=== PATIENT | female | born 1960 | race Caucasian/White ===

== ENCOUNTER 2019-10-07 08:55 | Outpatient (RCR) | payer OTHER, SELFPAY ==
--- NOTE | 2019-10-07 08:52 | PTOPEVAL ---
Thank you for referring this patient to [facility]. Please review, sign, date and return this plan of care DIXIE. I agree with and certify that the following plan of care is medically necessary. Referring Physician Date Admitting Provider: Attending Provider: PHYSICIAN NOT ON STAFF Referring Provider: *PT Outpatient Evaluation Start: 10/07/19 08:02 Freq: Status: Active Protocol: Document 10/07/19 08:02 TIGIST (Rec: 10/07/19 08:32 TIGIST [id number]) Therapy Assessment Status Assessment Status Assessment Status Evaluation Evaluation Information Problem Diagnosis right ATFL sprain, avulsion fx right ankle Onset 05/14/19 Subjective Information Pt. reports she rolled her Query Text:As Reported By Patient/ ankle in May going down Family steps and missed the last step . She reports that the pain has improved. She reports that she still gets pain with sleep and going up steps. She reports that she still cannot walk a long distance, such as walking through the store to do grocery shopping. She reports her doctor suggested she return to therapy to increase the strength of her ankle. She denies any recent episode of falling or ankle giving out. Diagnostic Tests X-Rays For This Problem Yes MRI For This Problem Yes Prior Level of Function Activity Level (Last 3 Months) Hand Dominance Right Activity of Daily Living Ability Independent Indoor/Home Mobility Independent Community Mobility Independent Stairs Ability Independent Functional Cognition (Planning, Shopping Independent , Taking Medications) Cooking Yes Cleaning Yes Laundry Yes Shopping Yes Driving Yes Comments Additional Prior Level of Function Pt. continues to perform all Comments basic ADL's. Pt. notes more difficulty with walking over uneven terrain such as grass and with walking long distances. Pain Assessment Timing of Pain Assessment Timing of Pain Assessment Pre-Treatment Pain Scale Pain Scale Used
== END 2019-10-30 10:46 | disposition home or self-care (01) ==
LOC: CHSPT 08:55
DX: S82.891D Other fracture of right lower leg, subsequent encounter for closed fracture with routine healing (principal); S93.491D Sprain of other ligament of right ankle, subsequent encounter
CPT/HCPCS: 97110; 97112; 97140; 97161

== ENCOUNTER 2019-10-14 13:26 | Outpatient (CLI) | payer OTHER, SELFPAY ==
--- NOTE | ~2019-10-14 | MM_ITS ---
CORRECTED REPORT order changed to MM screening mammo BI w eusebio [place]15[place] [facility] [place]: MM screening mammo BI w eusebio HISTORY: Screening mammogram TECHNIQUE: Craniocaudal and mediolateral oblique 3-D tomosynthesis images were obtained and synthetic 2-D images were generated. CAD analysis was submitted and interpreted. COMPARISON: No prior mammogram is available for comparison at this institution. BREAST PARENCHYMAL COMPOSITION: The breasts are heterogeneously dense, which may obscure small masses.......... FINDINGS: There is no evidence of suspicious mass, calcification, or architectural distortion to suggest malignancy in either breast. There has been no suspicious interval change. IMPRESSION: 1. No mammographic evidence of malignancy. 2. Recommend routine screening mammography in one year. BI-RADS Category 1: Negative Reviewed, dictated and finalized at location A. OR BENEFITS ANALYST MTDDavid
== END 2019-10-14 13:27 | disposition home or self-care (01) ==
LOC: CHSIMG 13:29
PROVIDERS: PCP Family Medicine; Visit Provider Family Medicine
DX: Z12.31 Encounter for screening mammogram for malignant neoplasm of breast (principal)
CPT/HCPCS: 77063; 77067

== ENCOUNTER 2019-12-19 15:38 | Observation (INO) | payer OTHER, SELFPAY ==
[2019-12-19] VITALS (7 sets, daily range): BP systolic 88–143; BP diastolic 38–91; PULSE 94–105; RESP 16–20; TEMP 36.9; O2SAT 95–98; BMI 35.0
--- NOTE | ~2019-12-19 | XR_ITS ---
EXAMINATION: XR hand LT 2V EXAM DATE: 12/19/2019 18:08 INDICATION: Left hand tingling, large tender lump over third and fourth carpal metacarpal regions. TECHNIQUE: Left hand frontal, lateral projections obtained and reviewed. Comparison is made to prior examination from 04/09/2004. FINDINGS: Again there are 2 screws in the second metacarpal head. There is been interval development of moderate primary osteoarthritis at the first carpometacarpal and metacarpophalangeal joint and the triscaphe joint. There are no bony erosions identified. There are no acute fractures or dislocations identified. There is no subcutaneous gas. The soft tissue is unremarkable. IMPRESSION: Chronic findings as above. Reviewed, dictated and finalized at location A. IMPRESSION: Chronic findings as above.
--- NOTE | ~2019-12-19 | CT_ITS ---
EXAMINATION: CT brain wo con EXAM DATE: 12/19/2019 16:46 INDICATION: Syncope, hit forehead. TECHNIQUE: Spiral CT of the head was performed without contrast. Axial, coronal and sagittal images were reviewed. The dose-length product (DLP) for this examination was 605.33 mGy-cm. The exposure w as tailored according to patient size, and iterative reconstruction (ASIR) was used as additional dos e reduction technique. There is no prior study for comparison. FINDINGS: There is no acute intraparenchymal hemorrhage. No evidence of intraparenchymal brain mass lesion. No evidence of acute infarction. There is no mass effect or midline shift. The ventricles are normal in size. There are no extra-axial collections. There are no acute calvarial fractures. T he orbits are unremarkable. Soft tissue is unremarkable. The visualized sinuses and mastoid air ramandeep ls are well aerated. IMPRESSION: 1. No acute intracranial findings. Reviewed, dictated and finalized at location A.
--- NOTE | 2019-12-19 16:31 | ECG_ITS ---
Measurements Intervals [place] Rate: 95 P: 55 NE: 166 QRS: 53 QRSD: 84 T: 44 QT: 445 QTc: 560 Interpretive Statements SINUS RHYTHM MINIMAL Q WAVES- INFERIOR LEADS PROLONGED QT INTERVAL ABNORMAL ECG Electronically Signed On 12-20-2019 7:07:21 CDT by Duran Callejas D.O.
[2019-12-19] MEDS: SODIUM CHLORIDE 0.9% IV 1,000 ML 999 ML IV CONT (16:50)
[2019-12-19 16:56] LABS: Basophils Absolute Auto 0.07 K/mm3 (0.00-0.10); Eosinophils Absolute Auto 0.11 K/mm3 (0.02-0.50); Eosinophils Percent Auto 1.6 % (1.0-6.0); Hematocrit 36.5 % (35.0-49.0); Hemoglobin 12.5 g/dL (12.0-15.0); Immature Granulocyte Absolute 0.05 K/mm3 (0.00-0.00); Immature Granulocyte Percent A 0.7 % (0.0-0.0); Lymphocytes Absolute Auto 1.48 K/mm3 (1.10-4.50); Lymphocytes Percent Auto 22.1 % (18.0-42.0); Mean Corpuscular HGB Conc 34.2 g/dL (32.0-36.0); Mean Corpuscular Hemoglobin 29.9 pg (27.0-31.0); Mean Corpuscular Volume 87.3 fL (78.0-102.0); Mean Platelet Volume 10.1 fl (9.2-11.8); Monocytes Absolute Auto 0.65 K/mm3 (0.10-0.90); Monocytes Percent Auto 9.7 % (2.0-11.0); Neutrophils Absolute Auto 4.3 K/mm3 (1.7-7.2); Neutrophils Percent Auto 64.9 % (50.0-70.0); Platelet Count Result 199 K/mm3 (150-420); Red Blood Count 4.18 M/mm3 (4.20-5.40); Red Cell Distribution Width 13.2 % (11.6-14.4); White Blood Count 6.7 K/mm3 (4.8-10.8)
[2019-12-19 17:15] LABS: Alanine Aminotransferase 26 U/L (14-59); Albumin Level 4.1 g/dL (3.4-5.0); Alkaline Phosphatase 59 U/L (46-116); Anion Gap 11.5 mmol/L (7-16); Aspartate Amino Transferase 20 U/L (15-37); Bilirubin,Total 0.5 mg/dL (0.00-1.00); Blood Urea Nitrogen 24 mg/dL (7-18); Calcium 8.6 mg/dL (8.5-10.1); Carbon Dioxide 32 mmol/L (21-32); Chloride 88 mmol/L (98-108); Estimated Glomerular Filt Rate 41; Glucose 119 mg/dL (70-99); Osmolality Calculated 271 mOsm/kg (285-295); Potassium 3.5 mmol/L (3.5-5.1); Sodium 128 mmol/L (136-145); Total Protein 7.3 g/dL (6.4-8.2)
[2019-12-19 17:16] LABS: Troponin I 0.04 ng/mL (0.00-0.056)
[2019-12-19 17:21] LABS: Appearance Urine Clear (Clear); Bilirubin Urine Negative (Negative); Color Urine Yellow (Yellow); Glucose Urine UA Negative (Negative); Ketones Urine Negative (Negative); Leukocyte Esterase Ur Trace (Negative); Nitrate Urine Negative (Negative); Protein Urine Negative (Negative); Urobilinogen Urine 0.2 mg/dL (0.2-1.0); pH Urine 6.5 (5.0-8.0)
[2019-12-19 17:27] LABS: Add Urine Microscopic? YES; Bacteria Urine 1+ /hpf; Blood Urine Trace (Negative); RBC Urine 0-2 /hpf (0-2); Squamous Epithelial Cell Urine Few /hpf (Few); WBC Urine 0-3 /hpf (0-3)
--- NOTE | 2019-12-19 18:09 | ED.SYNCOPE ---
HPI - Syncope General Chief Complaint: Syncope Stated Complaint: cough fainting Source: patient Mode of arrival: ambulatory Limitations: no limitations History of Present Illness HPI narrative: this is a 59-year-old female that presents with some syncopal episode was not witnessed, no tongue biting no bladder or bowel dysfunction has a prior episode and had a workup with some are her primary care [facility] [place] which included a event monitor and echocardiogram which were both unremarkable. This episode occurred in the context of prolonged coughing and then a episode where she feels like she passed out for a few seconds. Currently there is no headaches no blurry vision no nausea vomiting no chest pain no shortness of breath no fever chills no diarrhea constipation. The patient she is currently on antidepressant medications, duloxetine at buspirone and trazodone for sleep. Patient has a history of hypertension hyperlipidemia and generalized anxiety disorder. complaint: loss of consciousness Onset (ago): minute(s) -: second(s) Prodromal symptoms: none Witnessed: No Context: at rest and other (With coughing) Injuries sustained associated with event: LLE Current symptoms: none History: previous syncopal episode Treatments prior to arrival: none Related Data Home Medications Medication Instructions Recorded Confirmed metoprolol succinate 50 mg 50 mg PO DAILY tablet 09/25/19 12/19/19 tablet,extended release 24 hr Allergies Allergy/AdvReac Type Severity Reaction Status Date / Time No Known Allergies Allergy Verified 11/22/19 08:10 Review of Systems Review of Systems: All systems reviewed & are unremarkable except as noted in HPI and below PMFSH Past Medical History Medical History MARCO ANTONIO (generalized anxiety disorder) Hyperlipidemia Hypertension Surgical History Surgical History H/O repair of rotator cuff H/O tubal ligation History of appendectomy Family History Family History Father Family history of type 2 diabetes mellitus Social History Social History Smoking status: Never smoker Tobacco type: cigarettes Exam Const: General: no acute distress and alert Orientation/consciousness: patient oriented x3 HENMT: Head: normal to inspection Eyes: Pupils: Equal, round and reactive pupils present Neck: Neck: normal visual inspection Chest: Chest palpation & inspection: normal inspection of the chest Resp: Effort & Inspection: normal respiratory effort Auscultation: clear to auscultation bilaterally Cardio: Rate: regular rate Rhythm: regular rhythm GI: Auscultation: normal bowel sounds : General: Yes no CVA tenderness Urinary Catheter: Urinary Catheter: patent and draining Back/Spine/Pelvis: Back: no CVA tenderness Skin: General skin exam: normal color Rashes: no rashes Neuro: General: patient oriented x3, moves all extremities, no meningeal signs and no focal motor deficits Extrem: General: no pedal edema Psych: Appearance: grossly normal Mental Status: mental status grossly normal Thought content: Yes Normal thought content present Course Vital Signs Vital signs: Vital Signs Temperature 36.9 C 12/19/19 16:35 Pulse Rate 98 12/19/19 16:35 Respiratory Rate 20 12/19/19 16:35 Blood Pressure 143/91 H 12/19/19 16:35 Pulse Oximetry 98 12/19/19 16:35 Temperature 36.9 C 12/19/19 16:35 Pulse Rate 95 12/19/19 17:47 Respiratory Rate 20 12/19/19 16:35 Blood Pressure 88/38 L 12/19/19 17:47 Pulse Oximetry 98 12/19/19 16:35 MDM - Syncope Lab Data Result diagrams: 12/19/19 16:51 12/19/19 16:51 Labs: Lab Results 12/19/19 12/19/19 12/19/19 Range/Units 16:51 16:51 16:51 WBC 6.7 (4.
--- NOTE | 2019-12-19 19:56 | ADMGEN ---
This patient, Idalmis Gray, was admitted to 2nd Floor Room 204-1. Patient/family oriented to hospital policies and general routines including ID bracelet, bed and alarms, visiting hours, pain management, procedures, bathroom and other care routines, personal items, smoking policy, room service/diet, and visiting hours. Valuables list has been completed. Information on how to activate the Rapid Response Team has been discussed. Patient/Family are encouraged to report perceived risks to care and to ask questions if they do not understand what they are told or what they should do.
[2019-12-19] MEDS: ACETAMINOPHEN 325 MG TABLET 650 MG PO (22:47)
[2019-12-19] MEDS: TEMAZEPAM 15 MG CAPSULE PO (22:47)
[2019-12-20] VITALS: PULSE 101
[2019-12-20] MEDS: SODIUM CHLORIDE 0.9% IV 1,000 ML 100 ML IV CONT ×2 (01:31→01:33)
--- NOTE | 2019-12-20 02:07 | PC.NURSE ---
IV & telemetry continue. Sleeping, resp even. No signs of discomfort noted.
--- NOTE | 2019-12-20 03:28 | PC.NURSE ---
Sleeping, resp even. No signs of discomfort noted. IV & telemetry continue. Needed objects in reach.
[2019-12-20 04:00] VITALS: BP 104/54; PULSE 93; PULSE 95; RESP 20; TEMP 36.8; O2SAT 95
[2019-12-20] MEDS: ACETAMINOPHEN 325 MG TABLET 650 MG PO ×2 (04:17→09:03)
[2019-12-20 07:33] LABS: Basophils Absolute Auto 0.06 K/mm3 (0.00-0.10); Eosinophils Absolute Auto 0.15 K/mm3 (0.02-0.50); Eosinophils Percent Auto 2.5 % (1.0-6.0); Hematocrit 33.2 % (35.0-49.0); Hemoglobin 11.1 g/dL (12.0-15.0); Immature Granulocyte Absolute 0.05 K/mm3 (0.00-0.00); Immature Granulocyte Percent A 0.8 % (0.0-0.0); Lymphocytes Absolute Auto 2.51 K/mm3 (1.10-4.50); Mean Corpuscular HGB Conc 33.4 g/dL (32.0-36.0); Mean Corpuscular Hemoglobin 29.9 pg (27.0-31.0); Mean Corpuscular Volume 89.5 fL (78.0-102.0); Mean Platelet Volume 10.8 fl (9.2-11.8); Monocytes Absolute Auto 0.44 K/mm3 (0.10-0.90); Monocytes Percent Auto 7.2 % (2.0-11.0); Neutrophils Absolute Auto 2.9 K/mm3 (1.7-7.2); Neutrophils Percent Auto 47.5 % (50.0-70.0); Platelet Count Result 189 K/mm3 (150-420); Red Blood Count 3.71 M/mm3 (4.20-5.40); Red Cell Distribution Width 13.3 % (11.6-14.4); White Blood Count 6.1 K/mm3 (4.8-10.8)
[2019-12-20 07:42] LABS: Alanine Aminotransferase 23 U/L (14-59); Albumin Level 3.5 g/dL (3.4-5.0); Alkaline Phosphatase 51 U/L (46-116); Anion Gap 12.4 mmol/L (7-16); Aspartate Amino Transferase 19 U/L (15-37); Bilirubin,Total 0.2 mg/dL (0.00-1.00); Blood Urea Nitrogen 17 mg/dL (7-18); Calcium 8.5 mg/dL (8.5-10.1); Carbon Dioxide 30 mmol/L (21-32); Chloride 95 mmol/L (98-108); Estimated CRCL calculation 46 ml/min; Estimated Glomerular Filt Rate 46; Glucose 113 mg/dL (70-99); Magnesium 2.1 mg/dL (1.8-2.4); Osmolality Calculated 280 mOsm/kg (285-295); Potassium 3.4 mmol/L (3.5-5.1); Sodium 134 mmol/L (136-145); Total Protein 6.4 g/dL (6.4-8.2)
[2019-12-20 08:00] VITALS: PULSE 95
--- NOTE | 2019-12-20 08:37 | ECG_ITS ---
Measurements Intervals [place] Rate: 88 P: 61 NM: 187 QRS: 69 QRSD: 84 T: 61 QT: 467 QTc: 566 Interpretive Statements SINUS RHYTHM MINIMAL Q WAVES- INFERIOR LEADS PROLONGED QT INTERVAL ABNORMAL ECG Electronically Signed On 12-20-2019 8:46:23 CDT by Duran Callejas D.O.
[2019-12-20 09:02] VITALS: PULSE 94
[2019-12-20] MEDS: DULOXETINE HCL 30 MG CAPSULE.DR PO (09:02)
[2019-12-20] MEDS: lisinopriL 20 MG TABLET PO (09:02)
[2019-12-20] MEDS: METOPROLOL SUCCINATE EXT REL 50 MG TABCR PO (09:02)
[2019-12-20 09:03] VITALS: TEMP 36.4
--- NOTE | 2019-12-20 11:00 | PC.NURSE ---
PT UP AD BEREKET IN ROOM WITHOUT COMPLAINT.
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
[2019-12-20] MEDS: POTASSIUM CHLORIDE 20 MEQ PACKET (FOR LIQUID) 40 MEQ PO (14:16)
[2019-12-20] MEDS: NITROFURANTOIN MONOHYD MACROCR 100 MG CAP PO (14:17)
== END 2019-12-20 14:50 | disposition home or self-care (01) ==
LOC: CHSED 18:34 → CHS2ND 18:47
PROVIDERS: Admitting Provider Emergency Medicine; Emergency Provider Emergency Medicine; PCP Family Medicine; Visit Provider Emergency Medicine
DX: R55 Syncope and collapse (principal); N39.0 Urinary tract infection, site not specified; E87.1 Hypo-osmolality and hyponatremia; R94.31 Abnormal electrocardiogram [ECG] [EKG]; I10 Essential (primary) hypertension; E78.5 Hyperlipidemia, unspecified; F41.1 Generalized anxiety disorder
CPT/HCPCS: 36415; 70450; 73120; 80053; 81001; 83735; 84484; 85025; 87086; 87088; 93005; 96360; 96361; 99283; 99285; A9270; G0378; G0379; J7030

== ENCOUNTER 2019-12-26 09:57 | Outpatient (CLI) | payer OTHER, SELFPAY ==
[2019-12-26 10:10] LABS: Basophils Absolute Auto 0.08 K/mm3 (0.00-0.10); Basophils Percent Auto 1.2 % (0.0-1.0); Eosinophils Absolute Auto 0.11 K/mm3 (0.02-0.50); Eosinophils Percent Auto 1.6 % (1.0-6.0); Hematocrit 42.6 % (35.0-49.0); Hemoglobin 14.1 g/dL (12.0-15.0); Immature Granulocyte Absolute 0.04 K/mm3 (0.00-0.00); Immature Granulocyte Percent A 0.6 % (0.0-0.0); Lymphocytes Absolute Auto 2.31 K/mm3 (1.10-4.50); Lymphocytes Percent Auto 33.5 % (18.0-42.0); Mean Corpuscular HGB Conc 33.1 g/dL (32.0-36.0); Mean Corpuscular Hemoglobin 29.8 pg (27.0-31.0); Mean Corpuscular Volume 90.1 fL (78.0-102.0); Monocytes Absolute Auto 0.64 K/mm3 (0.10-0.90); Monocytes Percent Auto 9.3 % (2.0-11.0); Neutrophils Absolute Auto 3.7 K/mm3 (1.7-7.2); Neutrophils Percent Auto 53.8 % (50.0-70.0); Platelet Count Result 251 K/mm3 (150-420); Red Blood Count 4.73 M/mm3 (4.20-5.40); Red Cell Distribution Width 13.5 % (11.6-14.4); White Blood Count 6.9 K/mm3 (4.8-10.8)
[2019-12-26 11:09] LABS: Anion Gap 19.3 mmol/L (7-16); Blood Urea Nitrogen 21 mg/dL (7-18); Calcium 9.9 mg/dL (8.5-10.1); Carbon Dioxide 24 mmol/L (21-32); Chloride 99 mmol/L (98-108); Estimated Glomerular Filt Rate 48; Glucose 124 mg/dL (70-99); Osmolality Calculated 290 mOsm/kg (285-295); Potassium 4.3 mmol/L (3.5-5.1); Sodium 138 mmol/L (136-145)
[2019-12-26 11:11] LABS: Ferritin 104 ng/mL (8-252); Iron 83 ug/dL (50-170); Percent Iron Saturation 18 % (12-57)
== END 2019-12-26 09:58 | disposition home or self-care (01) ==
PROVIDERS: PCP Family Medicine; Visit Provider Nurse Practitioner
DX: E87.1 Hypo-osmolality and hyponatremia (principal); R55 Syncope and collapse; R11.0 Nausea; R94.31 Abnormal electrocardiogram [ECG] [EKG]
CPT/HCPCS: 36415; 80048; 82728; 83540; 83550; 85025

== ENCOUNTER 2020-02-15 18:23 | Emergency (ER) | payer OTHER, SELFPAY ==
--- NOTE | ~2020-02-15 | XR_ITS ---
XR chest 2V DATE: 02/15/2020 19:57 INDICATION: Syncopal episode TECHNIQUE: PA and lateral views COMPARISON: None FINDINGS: Normal heart size. No hilar or mediastinal enlargement. No pulmonary infiltrate or consolid ation, pleural effusion or pulmonary vascular congestion or pneumothorax. Diffuse osteopenia. IMPRESSION: No active cardiopulmonary disease Reviewed, dictated and finalized at location A.
--- NOTE | ~2020-02-15 | CT_ITS ---
EXAMINATION: CT cervical spine wo con DATE: 02/15/2020 19:04 INDICATION: Syncopal episodes TECHNIQUE: Computed tomography (CT) of the cervical spine was performed without intravenous contrast. Automated exposure control and iterative reconstruction technique were employed. Exam dose: 550.33 mGy-cm total exam DLP. COMPARISON: None FINDINGS: There is straightening of the cervical spine which may be due to positioning and/or muscle spasm. C1 and C2 are normally aligned and the odontoid process is intact. There is mild anterolisthesis at C3-4. There is mild to moderate degenerative disc disease and mild anterolisthesis at C4-5. There is moderately severe degenerative disc disease at C5-6. There are degenerative changes throughout the apophyseal joints of the cervical spine. There is uncovertebral joint spurring particular at C5-6. IMPRESSION: Straightening No fracture or dislocation or locked facet Degenerative changes Reviewed, dictated and finalized at Location A. Reviewed, dictated and finalized at location A.
--- NOTE | ~2020-02-15 | CT_ITS ---
EXAMINATION: CT brain wo con DATE: 02/15/2020 19:03 INDICATION: Recurrent syncopal episodes TECHNIQUE: Computed tomography (CT) of the head was performed without intravenous contrast. The mA wa s adjusted according to patient size. Iterative reconstruction technique was employed. Exam dose: 68 1.00 mGy-cm total exam DLP. COMPARISON: 12/19/2019 CT brain FINDINGS: No intracranial mass lesion or hemorrhage or evidence of cerebrovascular accident. No midli ne shift or mass effect. Normal ventricular size. No subdural or epidural hematoma. No fracture or bone destruction of the cranial vault. The mastoid air cells and included paranasal si nuses are normally developed and aerated. IMPRESSION: No significant abnormality Reviewed, dictated and finalized at Location A. Reviewed, dictated and finalized at location A. IMPRESSION: No significant abnormality
[2020-02-15 18:32] LABS: Glucose Point of Care 100 (65-105)
[2020-02-15 18:35] VITALS: BP 112/68; PULSE 76; RESP 18; TEMP 36.7; O2SAT 97
--- NOTE | 2020-02-15 18:37 | ECG_ITS ---
Measurements Intervals [place] Rate: 71 P: 24 VA: 184 QRS: 56 QRSD: 90 T: 67 QT: 440 QTc: 480 Interpretive Statements SINUS RHYTHM MINIMAL Q WAVES- INFERIOR LEADS BORDERLINE ECG Electronically Signed On 02-17-2020 7:15:42 CDT by Duran Callejas D.O.
[2020-02-15 19:39] LABS: Basophils Absolute Auto 0.06 K/mm3 (0.00-0.10); Eosinophils Absolute Auto 0.09 K/mm3 (0.02-0.50); Eosinophils Percent Auto 1.4 % (1.0-6.0); Hematocrit 31.7 % (35.0-49.0); Hemoglobin 10.8 g/dL (12.0-15.0); Immature Granulocyte Absolute 0.02 K/mm3 (0.00-0.00); Immature Granulocyte Percent A 0.3 % (0.0-0.0); Lymphocytes Absolute Auto 2.15 K/mm3 (1.10-4.50); Lymphocytes Percent Auto 34.5 % (18.0-42.0); Mean Corpuscular HGB Conc 34.1 g/dL (32.0-36.0); Mean Corpuscular Hemoglobin 30.6 pg (27.0-31.0); Mean Corpuscular Volume 89.8 fL (78.0-102.0); Mean Platelet Volume 10.5 fl (9.2-11.8); Monocytes Absolute Auto 0.52 K/mm3 (0.10-0.90); Monocytes Percent Auto 8.3 % (2.0-11.0); Neutrophils Absolute Auto 3.4 K/mm3 (1.7-7.2); Neutrophils Percent Auto 54.5 % (50.0-70.0); Platelet Count Result 188 K/mm3 (150-420); Red Blood Count 3.53 M/mm3 (4.20-5.40); Red Cell Distribution Width 13.9 % (11.6-14.4); White Blood Count 6.2 K/mm3 (4.8-10.8)
[2020-02-15 19:44] LABS: Add Urine Microscopic? YES; Appearance Urine Clear (Clear); Bilirubin Urine Negative (Negative); Blood Urine 1+ (Negative); Color Urine Yellow (Yellow); Glucose Urine UA Negative (Negative); Ketones Urine Negative (Negative); Leukocyte Esterase Ur Negative LEU/UL (Negative); Nitrate Urine Negative (Negative); Protein Urine Negative (Negative); Specific Grav Ur <= 1.005 (1.010-1.020); Urobilinogen Urine 0.2 mg/dL (0.2-1.0); pH Urine 6.5 (5.0-8.0)
[2020-02-15 19:46] VITALS: BP 104/61; BP 92/68; PULSE 67; PULSE 69
[2020-02-15 19:47] VITALS: BP 120/70; PULSE 70
[2020-02-15 19:50] LABS: Amphetamine Screen Urine Negative (Negative); Bacteria Urine Trace /hpf; Barbiturate Screen Urine Negative (Negative); Benzodiazepines Screen Urine Negative (Negative); Cannabinoid Screen Urine Positive (Negative); Cocaine Screen Urine Negative (Negative); Methadone Screen Urine Negative (Negative); Mucus Urine None seen /lpf; Opiate Screen Urine Negative (Negative); Phencyclidine Screen Urine Negative (Negative); RBC Urine 0-2 /hpf (0-2); Squamous Epithelial Cell Urine Few /hpf (Few); WBC Urine None seen /hpf (0-3)
[2020-02-15 19:52] LABS: Ethanol 147 mg/dL (0-6)
[2020-02-15 19:58] LABS: Alanine Aminotransferase 16 U/L (14-59); Albumin Level 3.6 g/dL (3.4-5.0); Alkaline Phosphatase 50 U/L (46-116); Aspartate Amino Transferase 13 U/L (15-37); Bilirubin,Total 0.1 mg/dL (0.00-1.00); Blood Urea Nitrogen 17 mg/dL (7-18); Calcium 8.5 mg/dL (8.5-10.1); Carbon Dioxide 31 mmol/L (21-32); Chloride 95 mmol/L (98-108); Estimated CRCL calculation 53 ml/min; Estimated Glomerular Filt Rate 58; Glucose 99 mg/dL (70-99); Magnesium 2.1 mg/dL (1.8-2.4); Osmolality Calculated 281 mOsm/kg (285-295); Sodium 135 mmol/L (136-145); Total Protein 6.7 g/dL (6.4-8.2)
[2020-02-15 20:00] LABS: BNP 19 pg/mL (0-100); D Dimer 0.26 mg/L (0.19-0.50); Partial Thromboplastin Time 28.5 SEC (22.3-31.6); Prothrombin Time 10.1 Seconds (9.64-11.0); Troponin I < 0.02 ng/mL (0.00-0.056)
[2020-02-15] MEDS: NEOMYCIN/POLYMYXIN/BACITRACIN OINTMENT PACKET 2 PACKET (20:15)
[2020-02-15] MEDS: POTASSIUM CHLORIDE 20 MEQ TABLET 40 MEQ PO (20:45)
[2020-02-15] MEDS: KCL 20 MEQ/SW 100 ML 100 ML 50 MEQ IVPB (20:45)
[2020-02-15 20:49] VITALS: BP 102/58; PULSE 77; RESP 18; O2SAT 98
[2020-02-15] MEDS: hydrOXYzine HCL 25 MG TABLET 50 MG PO (21:09)
[2020-02-15 22:19] VITALS: BP 101/54; PULSE 76; RESP 20; O2SAT 95
--- NOTE | 2020-02-15 22:45 | PC.NURSE ---
Pt denies any complaints at this time. Pt states she does have a ride home. Awaiting repeat bmp to check potassium. Pt aware.
--- NOTE | 2020-02-15 22:58 | PC.NURSE ---
report to Aria EUCEDA
[2020-02-15 23:08] LABS: Anion Gap 12.7 mmol/L (7-16); Blood Urea Nitrogen 16 mg/dL (7-18); Calcium 8.8 mg/dL (8.5-10.1); Carbon Dioxide 31 mmol/L (21-32); Chloride 97 mmol/L (98-108); Estimated CRCL calculation 53 ml/min; Estimated Glomerular Filt Rate 59; Glucose 101 mg/dL (70-99); Osmolality Calculated 285 mOsm/kg (285-295); Potassium 3.7 mmol/L (3.5-5.1); Sodium 137 mmol/L (136-145)
[2020-02-15 23:27] VITALS: BP 110/75; PULSE 100; RESP 18; TEMP 36.6; O2SAT 98
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
== END 2020-02-15 23:47 | disposition home or self-care (01) ==
PROVIDERS: Emergency Provider Family Medicine; PCP Family Medicine
DX: F10.129 Alcohol abuse with intoxication, unspecified (principal); R55 Syncope and collapse; F12.921 Cannabis use, unspecified with intoxication delirium; V49.9XXA Car occupant (driver) (passenger) injured in unspecified traffic accident, initial encounter
CPT/HCPCS: 36415; 70450; 71046; 72125; 80048; 80053; 80307; 81001; 82948; 83735; 83880; 84484; 85025; 85380; 85610; 85730; 93005; 96365; 96366; 99283; 99284; A9270; J3480

== ENCOUNTER 2020-09-01 13:59 | Outpatient (CLI) | payer OTHER, SELFPAY ==
[2020-09-02 17:28] LABS: SARS-CoV-2 RNA PCR Negative
== END 2020-09-01 14:00 | disposition home or self-care (01) ==
LOC: CHSLAB 14:03
PROVIDERS: PCP Family Medicine; Visit Provider Family Medicine
DX: Z20.822 Contact with and (suspected) exposure to COVID-19 (principal)
CPT/HCPCS: C9803; U0003; U0005

== ENCOUNTER 2020-11-11 12:47 | Outpatient (CLI) | payer OTHER, SELFPAY ==
[2020-11-11 13:47] LABS: Anion Gap 9 mmol/L (8-16); Blood Urea Nitrogen 7 mg/dL (7-18); Calcium 9.4 mg/dL (8.5-10.1); Carbon Dioxide 29 mmol/L (21-32); Chloride 100 mmol/L (98-108); Estimated Glomerular Filt Rate > 60; Glucose 121 mg/dL (70-99); Magnesium 2.1 mg/dL (1.8-2.4); Osmolality Calculated 285 mOsm/kg (285-295); Potassium 4.1 mmol/L (3.5-5.1); Sodium 138 mmol/L (136-145)
== END 2020-11-11 12:48 | disposition home or self-care (01) ==
LOC: CHSLAB 12:49
PROVIDERS: PCP Family Medicine; Visit Provider Internal Medicine Cardiovascular Disease
DX: R42 Dizziness and giddiness (principal); I10 Essential (primary) hypertension; R55 Syncope and collapse
CPT/HCPCS: 36415; 80048; 83735

== ENCOUNTER 2021-03-15 16:59 | Outpatient (CLI) | payer OTHER, SELFPAY ==
[2021-03-15 17:28] LABS: Hemoglobin A1C 5.9 % (<5.7)
[2021-03-15 18:28] LABS: Free T4 Free Thyroxine Reflex 1.04 ng/dL (0.76-1.46)
== END 2021-03-15 17:00 | disposition home or self-care (01) ==
LOC: CHSLAB 17:00
PROVIDERS: PCP Family Medicine; Visit Provider Internal Medicine Cardiovascular Disease
DX: E78.1 Pure hyperglyceridemia (principal)
CPT/HCPCS: 36415; 83036; 84439; 84443

== ENCOUNTER 2021-06-14 12:13 | Outpatient (CLI) | payer MEDICARE, MEDICAID, SELFPAY ==
--- NOTE | ~2021-06-14 | MM_ITS ---
EXAMINATION: MM screening [place] BI w eusebio HISTORY: Screening TECHNIQUE: Craniocaudal and mediolateral oblique 3-D tomosynthesis images were obtained and synthetic 2-D images were generated. CAD analysis was submitted and interpreted. COMPARISON: Comparison to multiple prior studies sequentially, with oldest reviewed study dated 06/15. BREAST PARENCHYMAL COMPOSITION: The breasts are heterogenously dense, which may obscure small masses. FINDINGS: There is no evidence of suspicious mass, calcification, or architectural distortion to sugg est malignancy in either breast. There has been no suspicious interval change. IMPRESSION: 1. No mammographic evidence of malignancy. 2. Recommend routine screening mammography in one year. BI-RADS Category 1: Negative Reviewed, dictated and finalized at location A.
== END 2021-06-14 12:14 | disposition home or self-care (01) ==
PROVIDERS: PCP Family Medicine; Visit Provider Advanced Practice Midwife
DX: Z12.31 Encounter for screening mammogram for malignant neoplasm of breast (principal)
CPT/HCPCS: 77063; 77067

== ENCOUNTER 2021-06-23 15:26 | Outpatient (CLI) | payer MEDICARE, MEDICAID, SELFPAY ==
[2021-06-23 16:20] LABS: Cholesterol 178 mg/dL (0-200); HDL Direct 68 mg/dL (40-60); LDL Cholesterol Calculated 36 mg/dL (<130); Triglycerides 369 mg/dL (0-150)
[2021-06-23 16:27] LABS: Thyroid Stimulating Hormone Reflex 1.91 u/IU/mL (0.36-3.74)
== END 2021-06-23 15:27 | disposition home or self-care (01) ==
PROVIDERS: PCP Family Medicine; Visit Provider Family Medicine
DX: R79.89 Other specified abnormal findings of blood chemistry (principal); E78.5 Hyperlipidemia, unspecified; I10 Essential (primary) hypertension
CPT/HCPCS: 36415; 80061; 84443

== ENCOUNTER 2021-08-17 09:34 | Outpatient (CLI) | payer MEDICARE, MEDICAID, SELFPAY ==
[2021-08-17 11:28] LABS: Alanine Aminotransferase 39 U/L (14-59); Albumin Level 3.9 g/dL (3.4-5.0); Alkaline Phosphatase 76 U/L (46-116); Anion Gap 9 mmol/L (8-16); Aspartate Amino Transferase 36 U/L (15-37); Bilirubin,Total 0.4 mg/dL (0.00-1.00); Blood Urea Nitrogen 9 mg/dL (7-18); Calcium 9.5 mg/dL (8.5-10.1); Carbon Dioxide 34 mmol/L (21-32); Chloride 96 mmol/L (98-108); Estimated Glomerular Filt Rate > 60; Glucose 127 mg/dL (70-99); Magnesium 2.1 mg/dL (1.8-2.4); Osmolality Calculated 288 mOsm/kg (285-295); Potassium 3.3 mmol/L (3.5-5.1); Sodium 139 mmol/L (136-145); Total Protein 7.1 g/dL (6.4-8.2)
[2021-08-17 11:31] LABS: Thyroid Stimulating Hormone Reflex 2.88 u/IU/mL (0.36-3.74)
== END 2021-08-17 09:35 | disposition home or self-care (01) ==
LOC: CHSLAB 09:38
PROVIDERS: PCP Family Medicine; Visit Provider Family Medicine
DX: R94.31 Abnormal electrocardiogram [ECG] [EKG] (principal); I10 Essential (primary) hypertension; E11.9 Type 2 diabetes mellitus without complications; R79.89 Other specified abnormal findings of blood chemistry
CPT/HCPCS: 36415; 80053; 83735; 84443

== ENCOUNTER 2022-01-06 11:47 | Outpatient (CLI) | payer MEDICARE, SELFPAY ==
[2022-01-06 12:31] LABS: Anion Gap 4 mmol/L (8-16); Blood Urea Nitrogen 8 mg/dL (7-18); Calcium 8.8 mg/dL (8.5-10.1); Carbon Dioxide 37 mmol/L (21-32); Chloride 86 mmol/L (98-108); Estimated Glomerular Filt Rate > 60; Glucose 114 mg/dL (70-99); Osmolality Calculated 263 mOsm/kg (285-295); Potassium 2.7 mmol/L (3.5-5.1); Sodium 127 mmol/L (136-145)
== END 2022-01-06 11:48 | disposition home or self-care (01) ==
LOC: CHSLAB 11:58
PROVIDERS: PCP Family Medicine; Visit Provider Nurse Practitioner
DX: R94.31 Abnormal electrocardiogram [ECG] [EKG] (principal)
CPT/HCPCS: 36415; 80048

== ENCOUNTER 2022-01-18 15:25 | Outpatient (CLI) | payer MEDICARE, OTHER, SELFPAY ==
[2022-01-18 16:15] LABS: Anion Gap 8 mmol/L (8-16); Blood Urea Nitrogen 9 mg/dL (7-18); Calcium 9.4 mg/dL (8.5-10.1); Carbon Dioxide 33 mmol/L (21-32); Chloride 95 mmol/L (98-108); Estimated Glomerular Filt Rate > 60; Glucose 125 mg/dL (70-99); Osmolality Calculated 281 mOsm/kg (285-295); Potassium 2.9 mmol/L (3.5-5.1); Sodium 136 mmol/L (136-145)
== END 2022-01-18 15:26 | disposition home or self-care (01) ==
LOC: CHSLAB 15:32
PROVIDERS: PCP Internal Medicine Cardiovascular Disease; Visit Provider Nurse Practitioner
DX: I10 Essential (primary) hypertension (principal)
CPT/HCPCS: 36415; 80048

== ENCOUNTER 2022-06-03 14:58 | Outpatient (CLI) | payer OTHER, SELFPAY ==
[2022-06-03 15:53] LABS: Alanine Aminotransferase 21 U/L (14-59); Alkaline Phosphatase 67 U/L (46-116); Anion Gap 8 mmol/L (8-16); Aspartate Amino Transferase 16 U/L (15-37); Bilirubin,Total 0.3 mg/dL (0.00-1.00); Blood Urea Nitrogen 15 mg/dL (7-18); Calcium 9.1 mg/dL (8.5-10.1); Carbon Dioxide 29 mmol/L (21-32); Chloride 101 mmol/L (98-108); Estimated Glomerular Filt Rate > 60; Glucose 135 mg/dL (70-99); Magnesium 1.8 mg/dL (1.8-2.4); Osmolality Calculated 288 mOsm/kg (285-295); Potassium 3.8 mmol/L (3.5-5.1); Sodium 138 mmol/L (136-145); Total Protein 6.9 g/dL (6.4-8.2)
== END 2022-06-03 14:59 | disposition home or self-care (01) ==
LOC: CHSLAB 15:02
PROVIDERS: PCP Family Medicine; Visit Provider Internal Medicine Cardiovascular Disease
DX: R94.31 Abnormal electrocardiogram [ECG] [EKG] (principal)
CPT/HCPCS: 36415; 80053; 83735

== ENCOUNTER 2022-06-24 13:17 | Outpatient (CLI) | payer OTHER, SELFPAY ==
--- NOTE | ~2022-06-24 | MM_ITS ---
EXAMINATION: MM screening ozzie BI w eusebio HISTORY: Screening mammogram TECHNIQUE: Craniocaudal and mediolateral oblique 3-D tomosynthesis images were obtained and synthetic 2-D images were generated. CAD analysis was submitted and interpreted. COMPARISON: 06/14/2021, 10/14/2019 bilateral screening mammogram examinations BREAST PARENCHYMAL COMPOSITION: The breasts are heterogeneously dense, which may obscure small masses . FINDINGS: There is no evidence of suspicious mass, calcification, or architectural distortion to sugg est malignancy in either breast. There has been no suspicious interval change. IMPRESSION: 1. No mammographic evidence of malignancy. 2. Recommend routine screening mammography in one year. BI-RADS Category 1: Negative Reviewed, dictated and finalized at location A. ND EQUIPMENT MECHANIC
== END 2022-06-24 13:18 | disposition home or self-care (01) ==
LOC: CHSIMG 13:18
PROVIDERS: PCP Family Medicine; Visit Provider Family Medicine
DX: Z12.31 Encounter for screening mammogram for malignant neoplasm of breast (principal)
CPT/HCPCS: 77063; 77067

== ENCOUNTER 2022-11-29 11:41 | Outpatient (CLI) | payer MEDICARE, SELFPAY ==
[2022-11-29 12:00] LABS: Hematocrit 37.9 % (35.0-49.0); Hemoglobin 12.8 g/dL (12.0-15.0); Mean Corpuscular HGB Conc 33.8 g/dL (32.0-36.0); Mean Corpuscular Hemoglobin 30.9 pg (27.0-31.0); Mean Corpuscular Volume 91.5 fL (78.0-102.0); Mean Platelet Volume 10.6 fl (9.2-11.8); Platelet Count Result 191 K/mm3 (150-420); Red Blood Count 4.14 M/mm3 (4.20-5.40); Red Cell Distribution Width 12.7 % (11.6-14.4); White Blood Count 5.2 K/mm3 (4.8-10.8)
[2022-11-29 12:41] LABS: Alanine Aminotransferase 23 U/L (14-59); Albumin Level 3.5 g/dL (3.4-5.0); Alkaline Phosphatase 71 U/L (46-116); Anion Gap 7 mmol/L (8-16); Aspartate Amino Transferase 15 U/L (15-37); Bilirubin,Total 0.3 mg/dL (0.00-1.00); Blood Urea Nitrogen 8 mg/dL (7-18); Calcium 8.8 mg/dL (8.5-10.1); Carbon Dioxide 33 mmol/L (21-32); Chloride 103 mmol/L (98-108); Cholesterol 176 mg/dL (0-200); Estimated Glomerular Filt Rate > 60; Glucose 132 mg/dL (70-99); HDL Direct 52 mg/dL (40-60); LDL Cholesterol Calculated 59 mg/dL (<130); Lipase 124 U/L (16-77); Osmolality Calculated 296 mOsm/kg (285-295); Potassium 3.6 mmol/L (3.5-5.1); Sodium 143 mmol/L (136-145); Total Protein 6.5 g/dL (6.4-8.2); Triglycerides 327 mg/dL (0-150)
== END 2022-11-29 11:42 | disposition home or self-care (01) ==
PROVIDERS: PCP Family Medicine; Visit Provider Family Medicine
DX: R79.89 Other specified abnormal findings of blood chemistry (principal); E11.9 Type 2 diabetes mellitus without complications; I10 Essential (primary) hypertension; R10.9 Unspecified abdominal pain; R10.13 Epigastric pain
CPT/HCPCS: 36415; 80053; 80061; 83690; 84443; 85027

== ENCOUNTER 2022-12-02 12:38 | Outpatient (CLI) | payer MEDICARE, SELFPAY ==
[2022-12-10 19:27] LABS: Calprotectin, Stool 8 mcg/g
[2022-12-14 02:46] LABS: FECFAT Total Specimen Weight 15 g
== END 2022-12-02 12:39 | disposition home or self-care (01) ==
LOC: CHSLAB 12:40
PROVIDERS: PCP Family Medicine; Visit Provider Family Medicine
DX: R79.89 Other specified abnormal findings of blood chemistry (principal)
CPT/HCPCS: 82710; 83993

== ENCOUNTER 2022-12-13 15:46 | Outpatient (NON) | payer MEDICARE, SELFPAY | END 2022-12-13 15:47 | disposition home or self-care (01) | LOC: CHSLAB 15:49 | PROVIDERS: Visit Provider Nurse Practitioner Family | DX: Z12.4 Encounter for screening for malignant neoplasm of cervix (principal); Z11.51 Encounter for screening for human papillomavirus (HPV); Z11.8 Encounter for screening for other infectious and parasitic diseases | CPT/HCPCS: 87491; 87591; 87624; 88175; G0145 ==

== ENCOUNTER 2023-02-01 07:19 | Day surgery (SDC) | payer MEDICARE, SELFPAY ==
[2023-01-18 14:34] VITALS: BMI 29.9
[2023-01-19 15:09] VITALS: BMI 29.4
--- NOTE | 2023-01-31 20:35 | WPDANESEPPF ---
Anes - Initial Pre Proc Eval Procedure: Operation Date: 02/01/23 08:45 Proposed Procedures p Screening Colonoscopy - Ivan Robert DO Date/Time: 01/31/23 20:35 Surgeon: Ivan Robert DO Pre Op Diagnosis: Neoplasm Screening Patient Data Age: 62 Gender: F Height: 1.57 m Weight: 73 kg Allergies Allergy/AdvReac Type Severity Reaction Status Date / Time No Known Allergies Allergy Verified 02/01/23 07:43 Home Medications Medication Instructions Recorded Confirmed Type atorvastatin 80 mg tablet See Rx Instructions .Route 07/29/22 02/01/23 Rx .COMPLEX #90 tabs potassium chloride 10 mEq See Rx Instructions .Route 12/06/22 02/01/23 Rx tablet,extended release .COMPLEX #180 tabs duloxetine 30 mg capsule,delayed See Rx Instructions .Route .COMPLEX 01/11/23 02/01/23 History release pantoprazole 40 mg tablet,delayed 40 mg PO QAM 6 weeks #42 tabs 01/11/23 02/01/23 Rx release lisinopril 10 See Rx Instructions .Route 01/12/23 02/01/23 Rx mg-hydrochlorothiazide 12.5 mg .COMPLEX #30 tabs tablet icosapent ethyl 1 gram capsule See Rx Instructions .Route 01/13/23 02/01/23 Rx .COMPLEX #120 caps losartan 50 mg tablet 50 mg PO DAILY #30 tabs 01/16/23 02/01/23 Rx buspirone 10 mg tablet See Rx Instructions .Route 01/23/23 02/01/23 Rx .COMPLEX #270 tabs nadolol 40 mg tablet 40 mg PO DAILY #90 tabs 01/23/23 02/01/23 Rx triamcinolone acetonide 0.5 % 1 applic topical DAILY #45 grams 01/26/23 02/01/23 Rx topical cream Patient hx anesthesia problems: none Family hx anesthesia problems: none Results Review: All pre-operative results and documents have been reviewed as part of the pre-operative evaluation. FORMERLY [facility] Past Medical History Medical History Elevated TSH MARCO ANTONIO (generalized anxiety disorder) Hyperlipidemia Hypertension Hypokalemia Insomnia Surgical History Surgical History H/O repair of rotator cuff H/O tubal ligation History of appendectomy Family History Family History Father Family history of type 2 diabetes mellitus Social History Social History Smoking status: Never smoker Alcohol intake: current Alcohol use details: socially Substance use: current Substance use type: marijuana Other substance usage details: occassional Living arrangements: alone Gender identity (if verbalized by the patient): Female Spiritual care concerns: No Agree to blood products: Yes Anes - Eval Final PreProcedure Day of Procedure 01/31/23 20:35 Patient weight: overweight Heart: regular rate and rhythm Lungs: clear to auscultation and normal air movement Airway: Mallampati scale class II Neurological: alert and oriented Last oral intake: >/= 8 hours ASA classification: III Emergent: no Anesthetic plan: proceed Anesthesia type and monitoring: general GIVS Results Review: All pre-operative results and documents have been reviewed as part of the pre-operative evaluation. Informed Consent: The patient's anesthetic plan and its attendant risks and benefits were discussed with the patient/family/POA. Questions were solicited and answers provided to the satisfaction of the patient/family/POA.
[2023-02-01 07:40] VITALS: BP 123/72; PULSE 79; RESP 16; TEMP 36.4; O2SAT 98
[2023-02-01] MEDS: LACTATED RINGERS 1,000 ML 150 ML IV CONT (08:03)
--- NOTE | 2023-02-01 09:00 | PM.IMHP ---
H&P: HPI History of Present Illness Date/Time: 02/01/23 09:00 Chief Complaint: Epigastric pain, screening for colorectal cancer Narrative: 62 yo woman presents for EGD and colonoscopy. She has had epigastric pain for months. Denies hematemesis, hematochezia, or melena. Denies any foods that cause her pain. She had a colonoscopy over 10 years ago. Denies fam hx colon cancer. Review of Systems Review of Systems: All systems reviewed & are unremarkable except as noted in HPI and below Constitutional: Constitutional: Denies chills, Denies fever(s), Denies headache(s) and Denies weight loss Eyes: Eyes: Denies change in vision ENT: Denies dizziness, Denies headache(s), Denies neck mass and Denies throat swelling Cardiovascular: Cardiovascular: Denies chest pain, Denies lightheadedness and Denies dyspnea Respiratory: Respiratory: Denies cough, Denies dyspnea and Denies wheezing Gastrointestinal: Gastrointestinal: Reports as per HPI, Reports abdominal pain, Denies change in bowel habits, Denies nausea and Denies vomiting Genitourinary: Genitourinary: Denies hematuria and Denies dysuria Musculoskeletal: Musculoskeletal: Reports as per HPI Integumentary/Breasts: Skin/Breast: Reports as per HPI Neurologic: Denies dizziness and Denies headache(s) Allergic/Immunologic: Allergic/Immunologic: Denies throat swelling and Denies wheezing PMFSH Past Medical History Medical History Elevated TSH MARCO ANTONIO (generalized anxiety disorder) Hyperlipidemia Hypertension Hypokalemia Insomnia Surgical History Surgical History H/O repair of rotator cuff H/O tubal ligation History of appendectomy Family History Family History Father Family history of type 2 diabetes mellitus Social History Social History Smoking status: Never smoker Alcohol intake: current Alcohol use details: socially Substance use: current Substance use type: marijuana Other substance usage details: occassional Living arrangements: alone Gender identity (if verbalized by the patient): Female Spiritual care concerns: No Agree to blood products: Yes Meds Home Medications and Allergies Home Medications Medication Instructions Recorded Confirmed Type atorvastatin 80 mg tablet See Rx Instructions .Route 07/29/22 02/01/23 Rx .COMPLEX #90 tabs potassium chloride 10 mEq See Rx Instructions .Route 12/06/22 02/01/23 Rx tablet,extended release .COMPLEX #180 tabs duloxetine 30 mg capsule,delayed See Rx Instructions .Route .COMPLEX 01/11/23 02/01/23 History release pantoprazole 40 mg tablet,delayed 40 mg PO QAM 6 weeks #42 tabs 01/11/23 02/01/23 Rx release lisinopril 10 See Rx Instructions .Route 01/12/23 02/01/23 Rx mg-hydrochlorothiazide 12.5 mg .COMPLEX #30 tabs tablet icosapent ethyl 1 gram capsule See Rx Instructions .Route 01/13/23 02/01/23 Rx .COMPLEX #120 caps losartan 50 mg tablet 50 mg PO DAILY #30 tabs 01/16/23 02/01/23 Rx buspirone 10 mg tablet See Rx Instructions .Route 01/23/23 02/01/23 Rx .COMPLEX #270 tabs nadolol 40 mg tablet 40 mg PO DAILY #90 tabs 01/23/23 02/01/23 Rx triamcinolone acetonide 0.5 % 1 applic topical DAILY #45 grams 01/26/23 02/01/23 Rx topical cream Allergies Allergy/AdvReac Type Severity Reaction Status Date / Time No Known Allergies Allergy Verified 02/01/23 07:43 Vital Signs Vital Signs - 24 hr 02/01/23 07:40 Temperature 36.4 C Pulse Rate 79 Respiratory Rate 16 Blood Pressure 123/72 Pulse Oximetry 98 Oxygen Delivery Room Air Exam Const: General: no acute distress and alert Orientation/consciousness: patient oriented x3 HENMT: Head: normocephalic and atraumatic Ears: hearing grossly normal bilaterally Face/Nose/Sinus: Normal nare
--- NOTE | 2023-02-01 09:04 | WPDHPUPDATE1 ---
History and Physical Update Update Date/Time: 02/01/23 09:04 History and Physical has been reviewed, including an updated exam of the patient. There are NO changes in the patient's condition. Risks, benefits, and alternatives have been discussed and questions answered. Patient agrees to proceed with procedure.
[2023-02-01 09:47] VITALS: BP 99/62; PULSE 74; RESP 14; O2SAT 100
--- NOTE | 2023-02-01 09:52 | WPDANESPN ---
Anes - Prog Note Post-Op Date/Time: 02/01/23 09:52 Cardiovascular status: normal Respiratory status: normal Airway patency: baseline Mental status: baseline Post-Op hydration status: normal Vital Signs: Last Vital Signs Temp 36.4 C 02/01/23 07:40 Pulse 79 02/01/23 07:40 Resp 16 02/01/23 07:40 BP 123/72 02/01/23 07:40 Pulse Ox 98 02/01/23 07:40 O2 Del Method Room Air 02/01/23 07:40 Pain Score (VAS): 0 I/O: Intake & Output 01/31/23 02/01/23 02/01/23 23:59 07:59 15:59 Intake Total 500 Balance 500 Post-procedural complaints: none Patient Feedback: Patient satisfied with anesthetic care.
[2023-02-01 09:57] VITALS: BP 108/59; PULSE 71; RESP 14; O2SAT 100
[2023-02-01 10:07] VITALS: BP 106/61; PULSE 63; RESP 14; O2SAT 100
== END 2023-02-01 10:26 | disposition home or self-care (01) ==
PROVIDERS: PCP Family Medicine; Visit Provider Surgery
PROC: 0DJD8ZZ Inspection of Lower Intestinal Tract, Via Natural or Artificial Opening Endoscopic (ICD-10-PCS; CPT 45378; principal; 2023-02-01 08:45)
PROC: 0DJ08ZZ Inspection of Upper Intestinal Tract, Via Natural or Artificial Opening Endoscopic (ICD-10-PCS; CPT 43235; 2023-02-01 08:45)
DX: Z12.11 Encounter for screening for malignant neoplasm of colon (principal)
CPT/HCPCS: 45385; 43239

== ENCOUNTER 2023-02-01 09:00 | Outpatient (NON) | payer MEDICARE, SELFPAY | END 2023-02-01 09:01 | disposition home or self-care (01) | LOC: ANHLAB 02-02 08:11 | PROVIDERS: PCP Family Medicine; Visit Provider Surgery | DX: Z12.11 Encounter for screening for malignant neoplasm of colon (principal); Z12.12 Encounter for screening for malignant neoplasm of rectum | CPT/HCPCS: 88305 ==

== ENCOUNTER 2023-07-05 12:34 | Outpatient (CLI) | payer MEDICARE, SELFPAY ==
--- NOTE | ~2023-07-05 | MM_ITS ---
EXAMINATION: MM screening ozzie BI w eusebio HISTORY: Screening mammogram TECHNIQUE: Craniocaudal and mediolateral oblique 3-D tomosynthesis images were obtained and synthetic 2-D images were generated. CAD analysis was submitted and interpreted. COMPARISON: 06/24/2022, 06/14/2021, 10/14/2019 bilateral screening mammogram examinations BREAST PARENCHYMAL COMPOSITION: The breasts are heterogeneously dense, which may obscure small masses . FINDINGS: Scattered occasional bilateral benign calcifications. New rounded 4 mm partially obscured mass with partial halo sign in the upper outer left breast wheel grinder iorly, possibly a cyst. Diagnostic left mammogram and ultrasound examination are recommended. No other suspicious mass, architectural distortion, malignant calcification, skin thickening or retra ction or significant new or developing density of either breast is noted otherwise. IMPRESSION: 1. New 4 mm partially circumscribed mass with halo sign, posterior upper outer left breast, possibly a cyst 2. Diagnostic left mammogram and left breast ultrasound examination are recommended BI-RADS Category 0: Incomplete: Needs additional imaging evaluation. Reviewed, dictated and finalized at location A. GENICS ENGINEER IMPRESSION: 1. New 4 mm partially circumscribed mass with halo sign, posterior upper outer left breast, possibly a cyst 2. Diagnostic left mammogram and left breast ultrasound examination are recomme nded BI-RADS Category 0: Incomplete: Needs additional imaging evaluation.
== END 2023-07-05 12:35 | disposition home or self-care (01) ==
LOC: CHSIMG 12:35
PROVIDERS: PCP Family Medicine; Visit Provider Family Medicine
DX: Z12.31 Encounter for screening mammogram for malignant neoplasm of breast (principal); R92.8 Other abnormal and inconclusive findings on diagnostic imaging of breast
CPT/HCPCS: 77063; 77067

== ENCOUNTER 2023-07-17 09:30 | Outpatient (CLI) | payer MEDICARE, SELFPAY ==
--- NOTE | ~2023-07-17 | MMUS_ITS ---
EXAMINATION: MM diagnostic ozzie LT w eusebio, US breast LT limited HISTORY: Left breast mass on screening mammogram TECHNIQUE: Additional 3-D tomosynthesis images of the left breast were performed and synthetic 2-D im ages were generated. CAD analysis was submitted and interpreted. High resolution limited left breast ultrasound was performed. COMPARISON: 07/05/2023, 06/24/2022, 06/14/2021 FINDINGS: MAMMOGRAPHIC FINDINGS: There is a 6 mm oval, obscured, low density mass in the middle/posterior third of the upper outer pinky drant of the breast at the 2:00 location, 5 cm from the nipple. No suspicious calcification or priscilla ectural distortion are identified. ULTRASOUND: There is a 5 mm cyst at the 2:00 location, 6 cm from the nipple corresponding to the mammographic fin ding in question. No suspicious cystic or solid mass is identified. IMPRESSION: 1. No mammographic or sonographic evidence of malignancy. 2. Recommend routine screening mammography in one year. BI-RADS Category 2: Benign finding(s). Reviewed, dictated and finalized at location A. RVISOR FURNACE PROCESS IMPRESSION: 1. No mammographic or sonographic evidence of malignancy. 2. Recommend routine screening mammography in one year. BI-RADS Category 2: Benign finding(s).
== END 2023-07-17 09:31 | disposition home or self-care (01) ==
PROVIDERS: PCP Family Medicine; Visit Provider Family Medicine
DX: R92.8 Other abnormal and inconclusive findings on diagnostic imaging of breast (principal)
CPT/HCPCS: 76642; 77061; 77065; G0279

== ENCOUNTER 2023-10-13 07:19 | Outpatient (CLI) | payer MEDICARE, MEDICAID, SELFPAY ==
--- NOTE | ~2023-10-13 | US_ITS ---
EXAMINATION: US right upper quadrant DATE: 10/13/2023 08:07 INDICATION: Epigastric abdominal pain. TECHNIQUE: Multiple grayscale and Doppler ultrasound images of the abdomen were obtained. COMPARISON: Abdomen ultrasound 09/05/2018 FINDINGS: The visualized portions of the head and body of the pancreas are normal. There is diffuse h epatic steatosis. There is normal flow in main portal vein. The gallbladder is normal in size. No gal lstones or gallbladder wall thickening. There is no sonographic Fong sign. The common duct is roderick l and measures 6 mm. IMPRESSION: 1. Diffuse hepatic steatosis. Reviewed, dictated and finalized at location A. CTOR OF ACCOUNTS PAYABLE
== END 2023-10-13 07:20 | disposition home or self-care (01) ==
PROVIDERS: PCP Family Medicine; Visit Provider Surgery
DX: K76.0 Fatty (change of) liver, not elsewhere classified (principal)
CPT/HCPCS: 76705

== ENCOUNTER 2023-12-21 08:08 | Outpatient (CLI) | payer MEDICARE, MEDICAID, SELFPAY ==
--- NOTE | ~2023-12-21 | NM_ITS ---
EXAMINATION: NM hepatobiliary wo pharm DATE: 12/21/2023 10:45 INDICATION: Epigastric abdominal pain. COMPARISON: Abdomen ultrasound 10/13/2023 TECHNIQUE: 4.8 mCi Tc-99m mebrofenin (Choletec) was administered intravenously. Scintigraphic images of the abdomen were obtained for one hour. Then, the patient drank 8 oz Ensure, and imaging was cont inued for 60 minutes. FINDINGS: There is normal clearance of radiotracer from the blood pool. There is homogeneous tracer u ptake by the liver. Activity progresses to the bowel and gallbladder. Gallbladder ejection fraction (GBEF) was 84%. Note that with this technique, normal GBEF >= 33%. IMPRESSION: 1. Normal hepatobiliary scintigraphy. Reviewed, dictated and finalized at location A.
== END 2023-12-21 08:09 | disposition home or self-care (01) ==
LOC: ANHIMG 08:14
PROVIDERS: PCP Family Medicine; Visit Provider Surgery
DX: R10.13 Epigastric pain (principal)
CPT/HCPCS: 78226; A9537

== ENCOUNTER 2024-04-30 09:45 | Outpatient (CLI) | payer MEDICARE, MEDICAID, SELFPAY ==
[2024-04-30 10:01] LABS: Basophils Absolute Auto 0.04 K/mm3 (0.00-0.10); Basophils Percent Auto 0.7 % (0.0-1.0); Eosinophils Absolute Auto 0.08 K/mm3 (0.02-0.50); Eosinophils Percent Auto 1.3 % (1.0-6.0); Hematocrit 36.6 % (35.0-49.0); Hemoglobin 12.3 g/dL (12.0-15.0); Immature Granulocyte Absolute 0.04 K/mm3 (0.00-0.00); Immature Granulocyte Percent A 0.7 % (0.0-0.0); Lymphocytes Absolute Auto 1.69 K/mm3 (1.10-4.50); Lymphocytes Percent Auto 28.5 % (18.0-42.0); Mean Corpuscular HGB Conc 33.6 g/dL (32-36); Mean Corpuscular Hemoglobin 31.7 pg (27.0-31.0); Mean Corpuscular Volume 94.3 fL (78.0-102.0); Mean Platelet Volume 10.9 fl (9.2-11.8); Monocytes Absolute Auto 0.57 K/mm3 (0.10-0.90); Monocytes Percent Auto 9.6 % (2.0-11.0); Neutrophils Absolute Auto 3.52 K/mm3 (1.70-7.20); Neutrophils Percent Auto 59.2 % (50.0-70.0); Platelet Count Result 175 K/mm3 (150-420); Red Blood Count 3.88 M/mm3 (4.20-5.40); Red Cell Distribution Width 13.8 % (11.6-14.4); White Blood Count 5.9 K/mm3 (4.8-10.8)
[2024-04-30 14:15] LABS: Hemoglobin A1C 5.5 % (<5.7)
[2024-04-30 14:30] LABS: Alanine Aminotransferase 21 U/L (14-59); Albumin Level 3.6 g/dL (3.4-5.0); Alkaline Phosphatase 62 U/L (46-116); Anion Gap 11 mmol/L (4-12); Aspartate Amino Transferase 13 U/L (15-37); Bilirubin,Total 0.4 mg/dL (0.00-1.00); Blood Urea Nitrogen 10 mg/dL (7-18); Calcium 8.7 mg/dL (8.5-10.1); Carbon Dioxide 28 mmol/L (21-32); Chloride 104 mmol/L (98-108); Estimated Glomerular Filt Rate 53; Folic Acid 8.6 ng/mL (8.6->20); Glucose 118 mg/dL (70-99); Osmolality Calculated 296 mOsm/kg (285-295); Potassium 3.8 mmol/L (3.5-5.1); Sodium 143 mmol/L (136-145); Total Protein 6.6 g/dL (6.4-8.2); Vitamin B12 292 pg/mL (193-986)
[2024-05-02 11:28] LABS: Alpha Fetoprotein Tumor Marker 8.9 ng/mL
== END 2024-04-30 09:46 | disposition home or self-care (01) ==
PROVIDERS: PCP Family Medicine; Visit Provider Family Medicine
DX: E53.8 Deficiency of other specified B group vitamins (principal); R53.83 Other fatigue; E03.9 Hypothyroidism, unspecified; E11.9 Type 2 diabetes mellitus without complications; Z80.0 Family history of malignant neoplasm of digestive organs; E78.2 Mixed hyperlipidemia
CPT/HCPCS: 36415; 80053; 82105; 82607; 82746; 83036; 84443; 85025

== ENCOUNTER 2024-05-06 07:20 | Outpatient (CLI) | payer MEDICARE, MEDICAID, SELFPAY ==
--- NOTE | ~2024-05-06 | US_ITS ---
Limited Abdominal Sonogram: Real-time sonographic imaging of the right upper quadrant was performed. Clinical History: Abnormal liver enzymes Findings: The liver appears echogenic, with no evidence of mass lesion or bile duct dilatation. Main portal vein demonstrates normal direction of flow. The gallbladder is well distended, and appears no rmal with no evidence of gallstone or wall thickening. The common bile duct measures 3 mm. The visua lized pancreas, aorta, and IVC are unremarkable. Impression: Diffuse fatty infiltration of the liver. Reviewed, dictated and finalized at location M. Impression: Diffuse fatty infiltration of the liver.
== END 2024-05-06 07:21 | disposition home or self-care (01) ==
PROVIDERS: PCP Family Medicine; Visit Provider Family Medicine
DX: R77.2 Abnormality of alphafetoprotein (principal); Z80.0 Family history of malignant neoplasm of digestive organs; K76.0 Fatty (change of) liver, not elsewhere classified
CPT/HCPCS: 76705

== ENCOUNTER 2024-07-22 14:23 | Outpatient (CLI) | payer MEDICARE, MEDICAID, SELFPAY ==
--- NOTE | ~2024-07-22 | MM_ITS ---
EXAMINATION: MM screening ozzie BI w eusebio HISTORY: Screening TECHNIQUE: Craniocaudal and mediolateral oblique 3-D tomosynthesis images were obtained and synthetic 2-D images were generated. CAD analysis was submitted and interpreted. COMPARISON: Comparison to multiple prior studies sequentially, with oldest reviewed study dated 09/2019. BREAST PARENCHYMAL COMPOSITION: Dense: The breasts are heterogeneously dense, which may obscure small masses FINDINGS: There are new focal asymmetries in the left breast. The right breast is stable without evid ence for malignancy. IMPRESSION: 1. New left breast asymmetries. 2. Additional mammographic views and possible breast ultrasound are recommended. BI-RADS Category 0: Incomplete: Needs additional imaging evaluation. Reviewed, dictated and finalized at location B. EAR PHYSICIAN IMPRESSION: 1. New left breast asymmetries. 2. Additional mammographic views and possible breast ultrasound are recommended . BI-RADS Category 0: Incomplete: Needs additional imaging evaluation.
== END 2024-07-22 14:24 | disposition home or self-care (01) ==
LOC: CHSIMG 14:25
PROVIDERS: PCP Family Medicine; Visit Provider Family Medicine
DX: Z12.31 Encounter for screening mammogram for malignant neoplasm of breast (principal); R92.8 Other abnormal and inconclusive findings on diagnostic imaging of breast
CPT/HCPCS: 77063; 77067

== ENCOUNTER 2024-07-30 09:38 | Outpatient (CLI) | payer MEDICARE, MEDICAID, SELFPAY ==
--- NOTE | ~2024-07-30 | MMUS_ITS ---
EXAMINATION: US breast LT complete, MM diagnostic ozzie LT w eusebio HISTORY: Follow-up left breast asymmetries TECHNIQUE: Additional 3-D tomosynthesis images of the left breast were performed and synthetic 2-D im ages were generated. CAD analysis was submitted and interpreted. High resolution complete left breast ultrasound was performed. COMPARISON: Comparison to multiple prior studies sequentially, with oldest reviewed study dated 09/2019. BREAST PARENCHYMAL COMPOSITION: Dense: The breasts are heterogeneously dense, which may obscure small masses FINDINGS: MAMMOGRAPHIC FINDINGS: There is a small obscured mass in the upper outer quadrant of the left breast, posterior third, likel y corresponding to the sonographic finding. No suspicious calcifications or architectural distortion. ULTRASOUND: Complete US of all 4 quadrants of the left breast/s and retroareolar region was reviewed. At 2:00, 7 cm from the nipple there is a 9 mm cyst. No suspicious masses to suggest malignancy. IMPRESSION: 1. No evidence for malignancy in the left breast. Benign finding. 2. Routine yearly screening mammogram and regular clinical breast examination are recommended. BI-RADS Category 2: Benign finding(s). Reviewed, dictated and finalized at location B. CT MARKETING MANAGER IMPRESSION: 1. No evidence for malignancy in the left breast. Benign finding. 2. Routine yearly screening mammogram and regular clinical breast examination a re recommended. BI-RADS Category 2: Benign finding(s).
== END 2024-07-30 09:39 | disposition home or self-care (01) ==
PROVIDERS: PCP Family Medicine; Visit Provider Family Medicine
DX: R92.8 Other abnormal and inconclusive findings on diagnostic imaging of breast (principal); N63.20 Unspecified lump in the left breast, unspecified quadrant
CPT/HCPCS: 76641; 77061; 77065; G0279

== ENCOUNTER 2024-08-21 02:02 | Day surgery (SDC) | payer MEDICARE, MEDICAID, SELFPAY ==
[2024-08-12 10:41] VITALS: BMI 33.0
--- NOTE | 2024-08-12 10:48 | PC.NURSE ---
Report to the Outpatient Waiting Room, entrance under the green pavilion located off [facility], at time _0900_ on date _[id number]_. Planned Procedure Time: _1100_.? Time changes happen often and if your time is changed the preop area will call you the afternoon before. - You and your visitor will be asked to self-screen and do not enter if you have any COVID symptoms. Please call surgeon if you need to reschedule. - A mask is optional within the hospital at this time. Patients may have clear liquids (water, carbonated beverages, clear teas, apple juice) until 3 hours prior to surgery with a maximum of 20 ounces. - No food from midnight until time of surgery and no smoking. This includes no chewing gum, candy or mints. Take only the following medications with a SIP of water on the morning of surgery: __Buspirone and Nadolol. Ok to take Alprazolam if needed. DO NOT STOP ANY OF YOUR OTHER PRESCRIPTION MEDICATIONS PRIOR TO SURGERY EXCEPT THE FOLLOWING Medications to discontinue per physician ____None Please no make-up, nail swedish, hairspray, perfume, deodorant, or body powder the day of surgery.? No jewelry (including any body piercings) or valuables the day of surgery, leave them at home.? Please take a shower or bath the night before, or the morning of, surgery with an antibacterial soap.? Wear comfortable, loose fitting clothing.? - Jewelry must be removed prior to entering the operating room.? Rings and piercings that are not removed may be cut off. - The hospital will not accept responsibility for valuables.? - Please leave all valuables, including medications, at home the day of surgery. If you are going home after surgery, a licensed regional driver must drive you home.? - NO public transportation without another adult if you receive anesthesia. - We recommend that an adult stay with you for 24 hours following discharge. - We also recommend that you do not drive, make important decision, drink alcoholic beverages, or take any drugs that were not prescribed by your health care provider for at least 24 hours after your discharge time. Follow any additional instructions given to you from your surgeon. Telephone instructions given to _Miguelina__and asked if any additional questions and then verbalized understanding. Patient advised to call surgeon office or pre surgery nurse liaison [phone] if any additional questions.
[2024-08-21] VITALS (13 sets, daily range): BP systolic 98–173; BP diastolic 46–89; PULSE 61–73; RESP 12–18; TEMP 35.4–36.4; O2SAT 89–98; BMI 31.4
--- NOTE | 2024-08-21 09:23 | ECG_ITS ---
Test Date: 2024-08-21 10:08:14 Measurements Intervals [place] Rate: 63 P: 26 MA: 187 QRS: 27 QRSD: 82 T: 110 QT: 481 QTc: 495 Interpretive Statements SINUS RHYTHM MODERATE T-WAVE ABNORMALITY, CONSIDER LATERAL ISCHEMIA [-0.1+ mV T-WAVE IN I/aVL/V5/V6] No previous ECG available for comparison Electronically Signed On 08-22-2024 16:24:05 [employer]PER[employer]OR [employer] by Kristofer Caballero M.D.
--- NOTE | 2024-08-21 09:49 | P.PNAN_ITS ---
Anes - Initial Pre Proc Eval Procedure: Operation Date: 08/21/24 11:00 Proposed Procedures p Laparoscopic Hiatal Hernia Repair Clay Fundoplication, Davinci Assisted - Ivan Robert DO Date/Time: 08/21/24 09:49 Surgeon: Ivan Robert DO Pre Op Diagnosis: hiatal hernia, esophagitis, gerd Patient Data Age: 63 Gender: F Height: 1.57 m Weight: 81.8 kg Allergies Allergy/AdvReac Type Severity Reaction Status Date / Time No Known Allergies Allergy Verified 08/13/24 13:35 Home Medications ?Medication ?Instructions ?Recorded ?Confirmed ?Type famotidine 40 mg tablet See Rx Instructions .Route 07/05/23 08/12/24 Rx .COMPLEX #90 tabs prazosin 2 mg capsule 2 mg PO QHS 10/02/23 08/12/24 History buspirone 10 mg tablet See Rx Instructions .Route 01/01/24 08/12/24 Rx .COMPLEX #270 tabs icosapent ethyl 1 gram capsule See Rx Instructions .Route 01/31/24 08/12/24 Rx (Vascepa) .COMPLEX #120 caps triamcinolone acetonide 0.5 % See Rx Instructions .Route 01/31/24 08/12/24 Rx topical cream .COMPLEX #45 grams lorazepam 0.5 mg tablet 0.5 mg PO DAILY PRN anxiety 04/30/24 08/12/24 History atorvastatin 40 mg tablet See Rx Instructions .Route 06/07/24 08/12/24 Rx .COMPLEX #90 tabs nadolol 40 mg tablet 40 mg PO DAILY 08/12/24 08/12/24 History clindamycin HCl 300 mg capsule 300 mg PO TID #15 caps 08/13/24 08/13/24 Rx vilazodone 40 mg tablet (Viibryd) 40 mg PO DAILY 08/13/24 History Patient hx anesthesia problems: none Family hx anesthesia problems: none Results Review: All pre-operative results and documents have been reviewed as part of the pre- operative evaluation. FORMERLY [facility] Past Medical History Medical History Elevated TSH Hypokalemia Insomnia MARCO ANTONIO (generalized anxiety disorder) Hyperlipidemia Hypertension Surgical History Surgical History History of hand surgery H/O repair of rotator cuff H/O tubal ligation History of appendectomy Family History Family History Father Family history of type 2 diabetes mellitus Other Cancer Heart disease Hypertension Social History Social History Smoking status: Never smoker Alcohol intake: current Alcohol use details: socially Substance use: current Substance use type: marijuana Other substance usage details: occassional Do You Feel Safe in your Home?: Yes Lack of Transportation: No Lack of Food: Never True Current Housing: I Have Housing Concerned About Future Housing: No Difficulty Paying Gas/Electric Bills: YES Difficulty Paying for Meds: No Currently Unemployed: No Education: High School Diploma/GED Difficulty w/ Childcare or Family Care: No Living arrangements: alone Gender identity (if verbalized by the patient): Female Spiritual care concerns: No Agree to blood products: Yes Anes - Eval Final PreProcedure Day of Procedure 08/21/24 09:49 Patient weight: obese Heart: regular rate and rhythm Lungs: clear to auscultation Airway: Mallampati scale class II Neurological: alert and oriented Last oral intake: >/= 8 hours ASA classification: III Emergent: no Anesthetic plan: proceed Anesthesia type and monitoring: general ETT and standard monitoring Results Review: All pre-operative results and documents have been reviewed as part of the pre-operative evaluation. Informed Consent: The patient's anesthetic plan and its attendant risks and benefits were discussed with the patient/family/POA. Questions were solicited and answers provided to the satisfaction of the patient/family/POA.
[2024-08-21] MEDS: LACTATED RINGERS 1,000 ML 30 ML IV CONT ×2 (10:00→13:59)
[2024-08-21] MEDS: ACETAMINOPHEN 500 MG TABLET 1000 MG PO (10:33)
[2024-08-21] MEDS: KETOROLAC 15 MG/ML VIAL (*BKC) IV PUSH (10:33)
--- NOTE | 2024-08-21 11:04 | P.HP_ITS ---
H&P: HPI History of Present Illness Date/Time: 08/21/24 11:04 Chief Complaint: Hiatal hernia, GERD Narrative: This is a 63-year-old woman who presents for hiatal hernia repair. She has been experiencing chronic reflux symptoms and has not had significant improvement with dietary and lifestyle changes along with PPIs. She now presents for robotic assisted laparoscopic hiatal hernia repair with fundoplication. She reports no changes since last seen in the office. Review of Systems Review of Systems: All systems reviewed & are unremarkable except as noted in HPI and below Constitutional: Constitutional: Denies chills, Denies fever(s), Denies headache(s) and Denies weight loss Eyes: Eyes: Denies change in vision ENT: Denies dizziness, Denies headache(s), Denies neck mass and Denies throat swelling Cardiovascular: Cardiovascular: Denies chest pain, Denies lightheadedness and Denies dyspnea Respiratory: Respiratory: Denies cough, Denies dyspnea and Denies wheezing Gastrointestinal: Gastrointestinal: Denies abdominal pain, Denies change in bowel habits, Denies nausea and Denies vomiting Genitourinary: Genitourinary: Denies hematuria and Denies dysuria Musculoskeletal: Musculoskeletal: Reports as per HPI Integumentary/Breasts: Skin/Breast: Reports as per HPI Neurologic: Denies dizziness and Denies headache(s) Allergic/Immunologic: Allergic/Immunologic: Denies throat swelling and Denies wheezing PMFSH Past Medical History Medical History Elevated TSH Hypokalemia Insomnia MARCO ANTONIO (generalized anxiety disorder) Hyperlipidemia Hypertension Surgical History Surgical History History of hand surgery H/O repair of rotator cuff H/O tubal ligation History of appendectomy Family History Family History Father Family history of type 2 diabetes mellitus Other Cancer Heart disease Hypertension Social History Social History Smoking status: Never smoker Alcohol intake: current Alcohol use details: socially Substance use: current Substance use type: marijuana Other substance usage details: occassional Do You Feel Safe in your Home?: Yes Lack of Transportation: No Lack of Food: Never True Current Housing: I Have Housing Concerned About Future Housing: No Difficulty Paying Gas/Electric Bills: YES Difficulty Paying for Meds: No Currently Unemployed: No Education: High School Diploma/GED Difficulty w/ Childcare or Family Care: No Living arrangements: alone Gender identity (if verbalized by the patient): Female Spiritual care concerns: No Agree to blood products: Yes Meds Home Medications and Allergies Home Medications ?Medication ?Instructions ?Recorded ?Confirmed ?Type famotidine 40 mg tablet See Rx Instructions .Route 07/05/23 08/21/24 Rx .COMPLEX #90 tabs prazosin 2 mg capsule 2 mg PO QHS 10/02/23 08/21/24 History buspirone 10 mg tablet See Rx Instructions .Route 01/01/24 08/21/24 Rx .COMPLEX #270 tabs icosapent ethyl 1 gram capsule See Rx Instructions .Route 01/31/24 08/21/24 Rx (Vascepa) .COMPLEX #120 caps triamcinolone acetonide 0.5 % See Rx Instructions .Route 01/31/24 08/12/24 Rx topical cream .COMPLEX #45 grams lorazepam 0.5 mg tablet 0.5 mg PO DAILY PRN anxiety 04/30/24 08/12/24 History atorvastatin 40 mg tablet See Rx Instructions .Route 06/07/24 08/21/24 Rx .COMPLEX #90 tabs nadolol 40 mg tablet 40 mg PO DAILY 08/12/24 08/21/24 History clindamycin HCl 300 mg capsule 300 mg PO TID #15 caps 08/13/24 08/13/24 Rx vilazodone 40 mg tablet (Viibryd) 40 mg PO DAILY 08/13/24 08/21/24 History Allergies Allergy/AdvReac Type Severity Reaction Status Date / Time No Known Allergies Allergy Verified 08/21/24 10:46 Vital Signs Vital Signs - 24 hr 08/21/24 09:00 Temperature 97.6 F Pulse Rate 67 Respiratory Rate 16 Blood Pressure 119/72 Pulse Oximetry 98 Oxygen Delivery Room Air Exam Const: General: no acute distress and alert Orientation/consciousness: patient oriented x3 HENMT: Head: normocephalic and atraumatic Ears: hearing grossly normal b ilaterally Face/Nose/Sinus: Normal nares present Mouth: Yes Normal oral and palatal mucosa present Eyes: Periorbital: periorbital findings normal Sclera: sclerae normal EOM: EOMs intact bilaterally Neck: Neck: normal visual inspection, no lymphadenopathy and trachea midline Chest: Chest palpation & inspection: normal inspection of the chest Resp: Effort & Inspection: normal respiratory effort Auscultation: clear to auscultation bilaterally Cardio: Jugular venous distension: no JVD Rate: regular rate Rhythm: regular rhythm Heart sounds: S1 normal heart sound present and S2 normal heart sound present Peripheral pulses: Peripheral pulses 2+ throughout GI: Inspection: normal to inspection GI Palp: Yes Soft to palpation, No Tenderness to palpation present (GI), No Guarding due to palpation present (GI) and No Rebound tenderness present Percussion: Yes normal to percussion Auscultation: normal bowel sounds : General: Yes no CVA tenderness Back/Spine/Pelvis: Back: no CVA tenderness Neuro: General: patient oriented x3, no focal motor deficits and CN's II-XI intact bilaterally Cognition (Neuro): normal cognition Speech: normal speech Motor exam (neuro): 5/5 motor strength present throughout Extrem: General: capillary refill normal and no clubbing, cyanosis or edema Assessment and Plan Assessment and plan (1) Hiatal hernia: Code(s): K44.9 - Diaphragmatic hernia without obstruction or gangrene Status: Acute Assessment and Plan: I have recommended laparoscopic paraesophageal hiatal hernia repair with fundoplication, da Amaris assist. I have discussed the procedure, risks, benefits, and alternatives with the patient. All questions answered. No changes since last seen in office. (2) GERD (gastroesophageal reflux disease): Qualifiers: Esophagitis presence: with esophagitis Esophagitis bleeding: unspecified whether hemorrhage Qualified Code(s): K21.00 - Gastro-esophageal reflux disease with esophagitis, without bleeding Code(s): K21.9 - Gastro-esophageal reflux disease without esophagitis Status: Acute (3) Esophagitis: Code(s): K20.90 - Esophagitis, unspecified without bleeding Status: Acute
--- NOTE | 2024-08-21 11:04 | WPDHPUPDATE1 ---
History and Physical Update Update Date/Time: 08/21/24 11:04 History and Physical has been reviewed, including an updated exam of the patient. There are NO changes in the patient's condition. Risks, benefits, and alternatives have been discussed and questions answered. Patient agrees to proceed with procedure.
[2024-08-21] MEDS: ceFAZolin 2 GM/D5W 50 ML 2 GM/50 ML BAG IVPB (11:42)
[2024-08-21] MEDS: BUPIVACAINE/EPINEPHRINE 0.5% 10 ML VIAL 30 ML INFILTRATE (12:23)
--- NOTE | 2024-08-21 14:40 | P.OP_ITS ---
Procedure Note - Detailed Date of Procedure 08/21/24 Pre-op Diagnosis hiatal hernia, esophagitis, gerd Post-op Diagnosis Same Procedure Performed Robotic assisted laparoscopic paraesophageal hernia repair with 270 degree fundoplication Surgeon Ivan Robert, DO Anesthesia General and Local (0.5% bupivicaine with epi) Indications This is a 63-year-old woman who presented with GERD and a hiatal hernia. She had been experiencing epigastric pain and frequent reflux symptoms. She has had an EGD which showed evidence of esophagitis. She did have manometry and a pH study performed. The pH study came back normal and manometry showed normal esophageal contractility. Despite the normal pH study, patient still had progressive symptoms from acid reflux and had EGD evidence of esophagitis. Further discussions were made with the patient about continuing medical treatment or proceeding with surgical repair. Decision was made to proceed with laparoscopic paraesophageal hiatal hernia repair with fundoplication, da Amaris assisted. Findings Patient was found to have a medium-sized hiatal hernia with a portion of the upper stomach protruding up above the diaphragm. The GE junction was about 3 cm above the esophageal hiatus. The hiatal hernia sac was reduced back into the abdominal cavity and enough esophageal length was mobilized to allow for a tension-free repair and fundoplication. A 270 degree fundoplication was performed. The hernia sac was not too bulky therefore it was not excised. After completing the hiatal hernia repair and fundoplication, no other significant abnormalities were noted. No specimens were obtained for pathology. Description of Procedure Procedure as well as risks, benefits, and alternatives were discussed with the patient. Written consent was obtained and placed in chart prior to procedure. Patient was brought back to surgical suite. She was placed supine on operating table. Time-out was done to confirm patient and procedure. She was then intubated by the anesthesia department. Her abdomen was prepped and draped in sterile fashion using chlorhexidine prep. 0.5% bupivacaine with epinephrine was infiltrated locally around each area for port placement. An 8 mm incision was made in the left upper quadrant 2 cm inferior to the costal margin in the mid clavicular line. A 5 mm Optiview trocar was then advanced through the abdominal layers under direct visualization. Once inside the abdominal cavity, carbon dioxide insufflation was used to create a pneumoperitoneum. The camera was inserted in the abdomen was inspected. No immediate abnormalities were identified. Another 8 mm camera port was placed about 15 cm inferior to the xiphoid just to the left of midline under direct visualization. An 8 mm port was placed in the anterior axillary line on the left upper quadrant at about the same transverse plane as the camera port. An 8 mm port was placed in the right upper quadrant and another 8 mm AirSeal assist port was placed in right lower quadrant just to the right of the umbilicus. A 5 mm incision was made in the subxiphoid region and the Shamir liver retractor was inserted through this incision into the abdominal cavity to lift up the left lobe of the liver. This was secured in place to the bed of the table. The patient was then placed in 20? reverse Trendelenburg. The robotic arms were secured to the ports and the robotic camera and instruments were inserted. A Cadiere grasper was placed in the right upper quadrant port. The vessel sealer was placed in the midclavicular left upper quadrant port and a Cadiere grasper was placed in the anterior axillary line left upper quadrant port. I then moved over to the robotic console took control of the camera and instruments. A careful thorough exam was performed throughout the abdomen. The stomach was then reduced from within the hiatal hernia. The gastrohepatic ligament was taken down medially using the vessel sealer to identify the right shekhar. Peritoneum along the medial side of the right shekhar was then divided using the vessel sealer. This allowed me to enter into the avascular plane and carefully dissect the hernia sac from within the hiatus. I continued the peritoneal incision along the right shekhar up to the anterior portion of the diaphragm. I then also dissected this far enough posteriorly to identify the crossing fibers of the left shekhar. I identified the anterior vagus nerve branch and carefully dissected this along with the esophagus. The hernia sac was dissected off of the esophagus and the dissection was carried along to the left shekhar using the vessel sealer. The peritoneum was dissected off of the left shekhar all the way down to posterior to the esophagus. I was then able to reduce the hernia sac completely and then created a window posteriorly behind the distal esophagus. A Clovis drain was then placed around the esophagus to help with retraction. I then continued the dissection up into the hiatus to allow for enough esophageal length. Once adequate dissection was performed, I was able to identify about 3-4 cm of esophageal length within the abdominal cavity at rest. I then inspected the posterior crura and chose to close the crura with a 2 0 V lock permanent running suture. This was run from posterior to anterior to allow for a wide enough opening for the esophagus. The repair was inspected and appeared secure. I then took down the short gastrics along the fundus the stomach using the vessel sealer. I entered into the lesser sac continued this dissection along the greater curvature and fundus. Then pas sed the fundus posterior to the esophagus and using a shoe shine technique was able to bring the fundus up around the sides of the esophagus. I chose to perform a 270 degree fundoplication. 2 0 Ethibond sutures were placed along the lateral esophagus along the right side initially. Three sutures were placed between the esophageal muscle fibers and fundus of the stomach to allow a fundoplication length of about 2 cm long. I then performed the same 3 sutures along the left side of the esophagus to the left side of the fundus. The fundoplication was then also pexy to the diaphragm along the posterior crura and left and right side of the esophageal hiatus. The partial fundoplication was inspected and appeared secure. No other abnormalities were noted with the esophagus or stomach. Clovis drain was removed. The robotic instruments and arms were then removed. The patient was then flattened out and bed and the Shamir liver retractor was then removed. The remaining ports were then removed under direct visualization, and the pneumoperitoneum was released. Skin of the incisions was approximated using 4-0 Monocryl subcuticular sutures. Exofin glue was then applied top. The patient was then awakened from anesthesia, extubated, and transferred to recovery. Estimated Blood Loss 10 Complications No immediate complications Condition Stable Disposition Floor [facility] [place] Billing Surgery - Charge Forward: Surgery Billing
[2024-08-21] MEDS: fentaNYL CITRATE INJ (*CRX) 100 MCG/2 ML VIAL 25 MCG IV PUSH ×2 (14:58→15:02)
[2024-08-21] MEDS: LACTATED RINGERS 1,000 ML 100 ML IV CONT (15:34)
--- NOTE | 2024-08-21 15:47 | ADMGEN ---
This patient, Idalmis Gray, was admitted to 3 [facility] Surg Room 311-01. Patient/family oriented to hospital policies and general routines including ID bracelet, bed and alarms, visiting hours, pain management, procedures, bathroom and other care routines, personal items, smoking policy, room service/diet, and visiting hours. Information on how to activate the Rapid Response Team has been discussed. Patient/Family are encouraged to report perceived risks to care and to ask questions if they do not understand what they are told or what they should do. Report from Eleanor in PACU.
[2024-08-21] MEDS: busPIRone HCL 10 MG TABLET PO (17:19)
[2024-08-21] MEDS: SIMETHICONE 80 MG TAB.CHEW PO ×2 (17:19→20:46)
[2024-08-21] MEDS: PRAZOSIN HCL 1 MG CAPSULE 2 MG PO (20:46)
[2024-08-22 00:38] VITALS: BP 138/72; PULSE 73; RESP 16; TEMP 36.4; O2SAT 95
[2024-08-22 05:23] VITALS: BP 134/63; PULSE 81; RESP 14; TEMP 37.3; O2SAT 97
[2024-08-22 08:52] VITALS: O2SAT 97
[2024-08-22 08:57] VITALS: BP 171/85; PULSE 80; RESP 18; TEMP 36.4; O2SAT 94
[2024-08-22 09:31] LABS: Hematocrit 38.8 % (37.0-47.0); Hemoglobin 12.8 g/dL (12.0-15.0); Mean Corpuscular Hemoglobin 30.2 pg (26-34); Mean Corpuscular Volume 91.5 fl (80-100); Mean Platelet Volume 11.6 fl (7.4-10.4); Platelet Count Result 183 k/mm3 (150-375); Red Blood Count 4.24 M/mm3 (4.2-5.4); Red Cell Distribution Width 12.9 % (11.5-14.5)
[2024-08-22 09:48] LABS: Anion Gap 5 mmol/L (4-12); Blood Urea Nitrogen 10 mg/dL (7-17); Calcium 8.9 mg/dL (8.4-10.2); Carbon Dioxide 31 mmol/L (22-30); Chloride 103 mmol/L (98-107); Estimated CRCL calculation 62 ml/min; Estimated Glomerular Filt Rate > 60; Glucose 123 mg/dL (65-110); Potassium 4.3 mmol/L (3.4-5.0); Sodium 139 mmol/L (137-145)
[2024-08-22] MEDS: SIMETHICONE 80 MG TAB.CHEW PO ×2 (09:51→13:13)
[2024-08-22] MEDS: ENOXAPARIN 40 MG/0.4 ML SYRINGE SUB-Q (09:51)
[2024-08-22] MEDS: busPIRone HCL 10 MG TABLET PO ×2 (09:51→13:13)
[2024-08-22 09:52] VITALS: PULSE 68
[2024-08-22] MEDS: nadoloL 20 MG TABLET 40 MG PO (09:52)
--- NOTE | 2024-08-22 12:47 | P.DS_ITS ---
DS: Admitting Diagnosis Discharge Date 08/22/2024 Admitting Diagnosis GERD, hiatal hernia DS: Discharge Diagnosis Discharge Diagnosis (1) GERD (gastroesophageal reflux disease): Qualifiers: Esophagitis presence: with esophagitis Esophagitis bleeding: unspecified whether hemorrhage Qualified Code(s): K21.00 - Gastro-esophageal reflux disease with esophagitis, without bleeding Code(s): K21.9 - Gastro-esophageal reflux disease without esophagitis Status: Acute (2) Hiatal hernia: Code(s): K44.9 - Diaphragmatic hernia without obstruction or gangrene Status: Acute DS: Summary Hospital Course Reason for hospitalization: Hiatal hernia Hospital Course: This is a 63-year-old woman who presented on 08/21/2024 for robotic assisted laparoscopic hiatal hernia repair with fundoplication. She has a longstanding history of GERD with esophagitis and has tried medications and anti reflux measures without any significant relief. Surgery was uncomplicated and she was placed in outpatient extended recovery postoperatively. She was started on a clear liquid diet. Pain was controlled with p.o. and IV pain medications as needed. On postop day 1, she denied any significant dysphagia. She was advanced to a full liquid diet. Her pain was well controlled. She was remaining hemodynamically stable. She was discharged on postop day 1 on a full liquid diet. Status at Discharge Functional status at discharge: independent ambulation Overall status at discharge: patient is progressing back to baseline Time Spent with Patient Time attestation: Total time spent providing and/or coordinating discharge services: Time spent: Less than 30 minutes Exam Const: General: comfortable and no acute distress Orientation/consciousness: patient oriented x3 Resp: Effort & Inspection: normal respiratory effort Auscultation: clear to auscultation bilaterally Cardio: Rate: regular rate Rhythm: regular rhythm GI: Inspection: non-distended and incision (intact with glue) GI Palp: Yes Soft to palpation, Yes Tenderness to palpation present (GI) (incisional) and No Guarding due to palpation present (GI) Auscultation: normal bowel sounds DS: Data Data Completed and Pending Labs on day of discharge: Labs from last 24 hours 08/22/24 08:47 WBC 11.0 H RBC 4.24 Hgb 12.8 Hct 38.8 MCV 91.5 MCH 30.2 MCHC 33.0 RDW 12.9 Plt Count 183 MPV 11.6 H Sodium 139 Potassium 4.3 Chloride 103 Carbon Dioxide 31 H Anion Gap 5 BUN 10 Creatinine 0.77 Estim Creat Clear Calc 62 Estimated GFR > 60 Glucose 123 H Calcium 8.9 Discharge Plan Discharge Patient Disposition: Home, Self-Care Discharge Instructions: DISCHARGE INSTRUCTION SHEET FOR HERNIA, GALLBLADDER AND APPENDIX SURGERIES DR. ANTHONY PATIENT TO TAKE HOME 1. May shower in 24 hours, no soaking in bath x 2weeks. 2. Call office for: * Wound increasingly painful or bleeding * Vomiting * Fever of greater than 101 degrees 3. If no bowel movement for three days, take 1 oz. (30 ml) Milk of Magnesia or MiraLax 17g 1 to 2 times daily. 4. No heavy lifting > 10-15 pounds x 4 weeks for hernia repairs 5. No driving for 3 days or while taking narcotic pain medications. 6. Ice to surgical site for 48 hours (30 min on, then 30 min off). 7. Up walking 10-30 minutes three times per day. 8. Resume previous home medications. 9. Follow-up 10-14 days in office for wound check or as previously scheduled. ([id number]) 10. Oral pain medications prescription to be sent to pharmacy. Take Tylenol 500mg every 6 hours and Ibuprofen 600mg every 6 hours for the first 2 days, then as needed. 11. NUTRITION: Start out by drinking fluids and maintain a full liquid/pureed diet for 2 weeks. NO straws or carbonated beverages. No toast/bread. If nausea or vomiting persists, contact your surgeon?s office. Revised December 2018 Patient Instructions: Full Liquid Diet (DC) Patient Language: Cymro Stand Alone Forms: General Discharge Instructions Follow-up/Referrals: Ivan Anthony DO [Physician] - 09/06/24 8:45 am Discharge Medications: New oxycodone 5 mg tablet 2.5 - 5 mg PO Q4H PRN (Reason: pain) Qty: 10 0RF Continued prazosin 2 mg capsule 2 mg PO QHS lorazepam 0.5 mg tablet 0.5 mg PO DAILY PRN (Reason: anxiety) vilazodone [Viibryd] 40 mg tablet 40 mg PO DAILY Patient Comments: Says takes HS Rx Instructions: must administer with a meal/food nadolol 40 mg tablet 40 mg PO DAILY famotidine 40 mg tablet See Rx Instructions .ROUTE .COMPLEX Qty: 90 11RF Dose Instruction: TAKE ONE TABLET BY MOUTH DAILY AT 9 AM Rx Instructions: TAKE ONE TABLET BY MOUTH DAILY AT 9 AM buspirone 10 mg tablet See Rx Instructions .ROUTE .COMPLEX Qty: 270 11RF Dose Instruction: TAKE ONE TABLET BY MOUTH THREE TIMES DAILY (VIAL) Rx Instructions: TAKE ONE TABLET BY MOUTH THREE TIMES DAILY (VIAL) icosapent ethyl [Vascepa] 1 gram capsule See Rx Instructions .ROUTE .COMPLEX Qty: 120 10RF Dose Instruction: TAKE TWO CAPSULES BY MOUTH TWICE DAILY Rx Instructions: TAKE TWO CAPSULES BY MOUTH TWICE DAILY triamcinolone acetonide 0.5 % cream See Rx Instructions .ROUTE .COMPLEX Qty: 45 3RF Dose Instruction: APPLY ONE APPLICATION TOPICALLY DAILY (BULK) Rx Instructions: APPLY ONE APPLICATION TOPICALLY DAILY (BULK) atorvastatin 40 mg tablet See Rx Instructions .ROUTE .COMPLEX Qty: 90 0RF Dose Instruction: TAKE 1 TABLET BY MOUTH EVERY DAY Rx Instructions: TAKE 1 TABLET BY MOUTH EVERY DAY
[2024-08-22 12:57] VITALS: BP 150/71; PULSE 70; RESP 18; TEMP 36.5; O2SAT 94
--- NOTE | 2024-08-22 14:33 | WPDANESPN ---
Anes - Prog Note Post-Op Date/Time: 08/22/24 14:33 Vital Signs: Last Vital Signs Temp 36.5 C 08/22/24 12:57 Pulse 70 08/22/24 12:57 Resp 18 08/22/24 12:57 BP 150/71 H 08/22/24 12:57 Pulse Ox 94 08/22/24 12:57 O2 Del Method Room Air 08/22/24 13:13 O2 Flow Rate 2 08/21/24 15:10 Pain Score (VAS): 2 I/O: Intake & Output 08/21/24 08/22/24 08/22/24 23:59 07:59 15:59 Intake Total 120 1500 952 Balance 120 1500 952 Laboratory Tests 08/22/24 08:47 08/22/24 08:47 08/22/24 08:47 WBC 11.0 H RBC 4.24 Hgb 12.8 Hct 38.8 MCV 91.5 MCH 30.2 MCHC 33.0 RDW 12.9 Plt Count 183 MPV 11.6 H Sodium 139 Potassium 4.3 Chloride 103 Carbon Dioxide 31 H Anion Gap 5 BUN 10 Creatinine 0.77 Estim Creat Clear Calc 62 Estimated GFR > 60 Glucose 123 H Calcium 8.9 Patient Feedback: Patient satisfied with anesthetic care.
== END 2024-08-22 16:26 | disposition home or self-care (01) ==
LOC: ANHSURGERY 08:49 → ANH3MEDSUR 08-22 08:52
PROVIDERS: PCP Family Medicine; Visit Provider Surgery
PROC: 0DV44ZZ Restriction of Esophagogastric Junction, Percutaneous Endoscopic Approach (ICD-10-PCS; CPT 43280; principal; 2024-08-21 11:00)
DX: K44.9 Diaphragmatic hernia without obstruction or gangrene (principal); K21.00 Gastro-esophageal reflux disease with esophagitis, without bleeding; G89.18 Other acute postprocedural pain; E78.5 Hyperlipidemia, unspecified; I10 Essential (primary) hypertension; F41.9 Anxiety disorder, unspecified; G47.00 Insomnia, unspecified; E87.6 Hypokalemia; F12.90 Cannabis use, unspecified, uncomplicated; E66.9 Obesity, unspecified; Z68.31 Body mass index [BMI] 31.0-31.9, adult; Z98.890 Other specified postprocedural states; Z98.51 Tubal ligation status; Z80.9 Family history of malignant neoplasm, unspecified; Z82.49 Family history of ischemic heart disease and other diseases of the circulatory system
CPT/HCPCS: 43281; S2900; 36415; 80048; 85027; 93005; A9270; J0330; J0690; J1100; J1171; J1650; J1885; J2003; J2250; J2405; J2704; J3010; J7120

== ENCOUNTER 2025-08-01 14:36 | Outpatient (CLI) | payer MEDICARE, MEDICAID, SELFPAY ==
--- NOTE | ~2025-08-01 | MM_ITS ---
EXAMINATION: MM screening ozzie BI w eusebio HISTORY: Screening TECHNIQUE: Craniocaudal and mediolateral oblique 3-D tomosynthesis images were obtained and synthetic 2-D images were generated. CAD analysis was submitted and interpreted. COMPARISON: Comparison to multiple prior studies sequentially, with oldest reviewed study dated , 07/05/2023 through 10/14/2019 BREAST PARENCHYMAL COMPOSITION: Dense: The breasts are heterogeneously dense, which may obscure small masses. FINDINGS: There is no evidence of suspicious mass, calcification, or architectural distortion to suggest malignancy in either breast. IMPRESSION: 1. No mammographic evidence of malignancy. 2. Recommend routine screening mammography in one year. BI-RADS Category 1: Negative Reviewed, dictated and finalized at location A. NCT WRITING INSTRUCTOR
--- OUTSIDE RECORDS SUMMARY | 2025-08-01 14:39 | XMS_ITS | Encounter Summary ---
Author Organization [facility] Healthcare Address [address] [place] [address] Care Team Providers Care Office Lead Name Role Phone Mellisa Sutherland MD Primary Care Provider [phone] Gideon Levin DO Primary Care Provider Encounter Details Date Type Department Care Team (Late st Contact Info) Description 12/01/2017 Orders Only [facility] Health Information Management [address] [place] [id number] Scanning, Provider Social History Tobacco Use Types Packs/Day Years Used Date Smoking Tobacco: Never Assessed Comments Unknown Sex and Gender Information Value Date Recorded Sex Assigned at Not on file 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 Gender Identity Not on file Sexual Orientation Not on file documented as of this encounter Plan of Treatment Not on file documented as of this encounter Procedures Procedure Name Priority Date/Time Associated Diagnosis Comments CARDIOLOGY DOCUMENT SCAN 12/01/2017 documented in this encounter Results * Cardiology Document Scan (12/01/2017) Anatomical Region Laterality Modality Other us Provider Scanning CV CARDIAC SERVICES PROCEDURES Final Result documented in this encounter Visit Diagnoses Not on filedocumented in this encounter Care Teams Office Lead Relationship Specialty Start Date End Date Mellisa Sutherland MD PCP - General Internal Medicine 11/12/17 11/08/20 Gideon Levin DO [address] [place] [address] PCP - General Family Medicine 01/05/22 documented as of this encounter
--- OUTSIDE RECORDS SUMMARY | 2025-08-01 14:39 | XMS_ITS | Encounter Summary ---
Author Organization [facility] Healthcare Address [address] [place] [address] Care Team Providers Care Metal Fabricator Name Role Phone Mellisa Sutherland MD Primary Care Provider [phone] Gideon Levin DO Primary Care Provider Encounter Details Date Type Department Care Team (Late st Contact Info) Description 11/30/2017 Orders Only [facility] Health Information Management [address] [place] [id number] Scanning, Provider Social History Tobacco Use Types Packs/Day Years Used Date Smoking Tobacco: Never Assessed Comments Unknown Sex and Gender Information Value Date Recorded Sex Assigned at Not on file 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 Gender Identity Not on file Sexual Orientation Not on file documented as of this encounter Plan of Treatment Not on file documented as of this encounter Procedures Procedure Name Priority Date/Time Associated Diagnosis Comments CARDIOLOGY DOCUMENT SCAN 11/30/2017 SCAN - LABS 11/29/2017 documented in this encounter Results * Cardiology Document Scan (11/30/2017) Anatomical Region Laterality Modality Other us Provider Scanning CV CARDIAC SERVICES PROCEDURES Edited Result - Final * SCAN - LABS (11/29/2017) us Provider Scanning Final Result documented in this encounter Visit Diagnoses Not on filedocumented in this encounter Care Teams Metal Fabricator Relationship Specialty Start Date End Date Mellisa Sutherland MD PCP - General Internal Medicine 11/12/17 11/08/20 Gideon Levin DO [facility] [place] [address] PCP - General Family Medicine 01/05/22 documented as of this encounter
--- OUTSIDE RECORDS SUMMARY | 2025-08-01 14:39 | XMS_ITS | Clinical Summary ---
Author Organization [facility] [address] Address [address] [place] [address] Care Team Providers Care Ux Design Manager Name Role Phone Ana Mariaterence Gideon Kuhnrish Primary Care Provider Allergies No known active allergies Medications atorvastatin (LIPITOR) 80 mg tablet Take 1 tablet (80 mg total) by mouth daily Active triamcinolone (KENALOG) 0.5 % cream Apply topically 3 (three) times a day Active nadoloL (CORGARD) 40 mg tabletIndications :Essential hypertension,Prol onged Q-T interval on ECG Take 1 tablet (40 mg total) by mouth daily 30 tablet [address] (PROTONIX) 40 mg EC tablet Take 1 tablet (40 mg total) by mouth daily 3 Active famotidine (PEPCID) 40 mg tablet Take 1 tablet (40 mg total) by mouth daily 3 Active LORazepam (ATIVAN) 0.5 mg tablet TAKE 1/2 TO 1 TABLET BY ORAL ROUTE EVERY DAY NEEDED TO AVOID PANIC ATTACK 3 Active prazosin (MINIPRESS) 2 mg capsule TAKE 1 CAPSULE BY MOUTH EVERYDAY AT BEDTIME 4 Active vilazodone (VIIBRYD) 20 mg tablet TAKE ONE TABLET BY MOUTH EVERY DAY WITH FOOD (VIAL) 4 Active busPIRone (BUSPAR) 10 mg tablet TAKE ONE TABLET BY MOUTH THREE TIMES DAILY (VIAL) 3 Active icosapent ethyL (VASCEPA) 1 gram capsuleIndication s:Hypertriglyceri demia Take 2 capsules (2 g total) by mouth 2 (two) times a day 360 capsule 3 5 Active losartan (COZAAR) 50 mg tabletIndications :Essential hypertension TAKE 1 TABLET BY MOUTH EVERY DAY 90 tablet 2 5 Active Active Problems Problem Noted Date Diagnosed Date Nonrheumatic mitral valve regurgitation 02/29/20 Hypertriglyceridemia 03/15/2021 Dizziness 11/09/2020 Vasovagal syncope 11/09/2020 Essential hypertension 11/09/2020 Other chest pain 03/26/2018 Assessment & Plan (03/26/2018 10:18 AM CDT): Chest pain was related to use of amphetamine and. No coronary artery disease on cardiac catheterization. Patient can stop beta-sam now. Continue aspirin. Prolonged Q-T interval on ECG 03/26/2018 Assessment & Plan (03/26/2018 10:19 AM CDT): Patient had prolonged QTC interval during hospitalization with ischemic changes. Repeat EKG in our clinic shows normal QTC interval and no ischemia. Mixed hyperlipidemia 03/26/2018 Assessment & Plan (03/26/2018 10:19 AM CDT): Continue Zocor. Continue fenofibrate. Surgical History Surgery Date Site/Laterality Comments CARDIAC CATHETERIZATION APPENDECTOMY ROTATOR CUFF REPAIR Right TUBAL LIGATION FINGER SURGERY Left Index Medical History Medical History Date Comments Hyperlipidemia Anxiety GERD (gastroesophageal reflux disease) Hypertension Social History Tobacco Use Types Packs/Day Years Used Date Smoking Tobacco: Never Smokeless Tobacco: Never Tobacco Cessation:Counseling Given: Not Answered Alcohol Use Standard Drinks/Week Comments No 0 (1 standard drink = 0.6 oz pur e alcohol) Personal Safety Answer Date Recorded Have you ever been in or are you currently in a harmful physical or emotional relationship or is someone making you feel afraid or unsafe? Denies 12/06/2023 Comments Unknown Sex and Gender Information Value Date Recorded Sex Assigned at Not on file Legal Sex Female 3:38 PM [employer] Gender Identity Not on file Sexual Orientation Not on file Last Filed Vital Signs Vital Sign Reading Time Taken Comments Blood Pressure 140/62 03/11/2025 8:25 AM CDT Pulse 63 03/11/2025 8:25 AM CDT Temperature - - Respiratory Rate 20 12/06/2023 8:27 AM CDT Oxygen Saturation 98% 03/11/2025 8:25 AM CDT Inhaled Oxygen Concentration - - Weight 73 kg (161 lb) 03/11/2025 8:25 AM CDT Height 157.5 cm (5' 2) 03/11/2025 8:25 AM CDT Body Mass Index 29.45 03/11/2025 8:25 AM CDT Plan of Treatment Health Maintenance Due Date Last Done Comments Cervical Cancer Screening 1959 Colon Cancer Screening-Colonoscopy 1959 Depression Screening 1959 Fall Risk Assessment 1959 Hepatitis C Screening 1959 Osteoporosis Screening-Bone Density Scan 1959 DTaP/Tdap/Td Vaccine (1 - Tdap) 1970 Hepatitis B Screening 1977 Zoster Vaccine (1 of 2) 2009 Pneumococcal vaccine 65+ (2 of 2 - PCV) 09/26/2017 09/26/2016 Breast Cancer Screening-Mammogram 04/26/2020 019 Well Visit 65+ 2024 Influenza Vaccine (#1) 2025 0, 06/25/2018, 04/10/2017, Additional history exists Insurance [employer]LA [facility] MEDICARE ADVANTAGE [facility] MEDICARE ADVANTAGE IDPA [facility] MEDICARE ADVANTAGE [employer] Care Teams Ux Design Manager Relationship Specialty Start Date End Date Gideon Levin DO [address] [place] [address] PCP - General Family Medicine 01/05/22
== END 2025-08-01 14:37 | disposition home or self-care (01) ==
PROVIDERS: PCP Family Medicine; Visit Provider Family Medicine
DX: Z12.31 Encounter for screening mammogram for malignant neoplasm of breast (principal)
CPT/HCPCS: 77063; 77067